=== PATIENT | male | born 1975 | race Caucasian/White ===

== ENCOUNTER 2025-01-17 17:37 | Inpatient (IN) | payer OTHER, SELFPAY ==
[2025-01-17] VITALS (21 sets, daily range): BP systolic 147–187; BP diastolic 99–133; PULSE 97–126; RESP 12–21; TEMP 36.6–37.1; O2SAT 93–99
--- NOTE | ~2025-01-17 | XR_ITS ---
EXAMINATION: XR abdomen/kub 1V DATE: 01/19/2025 08:39 INDICATION: Small bowel obstruction TECHNIQUE: A supine view of the abdomen on 2 radiographs was obtained. COMPARISON: None. FINDINGS: Nasogastric tube with distal tip in proximal side port in the body the stomach. Interval decrease in a now moderate amount of gas scattered throughout multiple loops of small bowel. Interval decrease in bowel dilation with a couple short segment of residual mildly dilated small bowel left abdomen. Maximiliano tional gas is seen in the proximal colon. Small amount of contrast at the rectum likely related to th e small bowel follow-through study from one day prior with no residual oral contrast in the small bow el. IMPRESSION: 1. Likely improving small bowel obstruction with passage of the oral contrast material to the rectum with decrease in amount of gas and small bowels with normal caliber of several of the previously dila blaise loops. Reviewed, dictated and finalized at location A. IMPRESSION: 1. Likely improving small bowel obstruction with passage of the oral contrast m aterial to the rectum with decrease in amount of gas and small bowels with norm al caliber of several of the previously dilated loops.
--- NOTE | ~2025-01-17 | XR_ITS ---
EXAMINATION: XR sm bowel follow through WS DATE: 01/18/2025 16:34 INDICATION: Small bowel obstruction TECHNIQUE: Software Design Engineer radiograph(s) of the abdomen was/were obtained. Oral contrast was administered, and sequential radiographs of the abdomen were obtained until 4 3 hours at which time the patient reques blaise the study be terminated and nasogastric tube suction resumed. COMPARISON: CT dated 01/17/2025 FINDINGS: Nasogastric tube with distal tip in proximal side port in the proximal body of the stomach on the sco ut image. There are dilated loops of gas-filled small bowel in the left abdomen. The contrast remain s confined to the duodenum and jejunum on the three-hour images with no focal small bowel in the righ t abdomen or in the colon on the three-hour delayed images. IMPRESSION: 1. Likely persistent small bowel obstruction with oral contrast not extending beyond the dilated jeju num in the left abdomen over the 3 hours of imaging. Reviewed, dictated and finalized at location A. IMPRESSION: 1. Likely persistent small bowel obstruction with oral contrast not extending b eyond the dilated jejunum in the left abdomen over the 3 hours of imaging.
--- NOTE | ~2025-01-17 | CT_ITS ---
EXAMINATION: CT chest abdomen pelvis w con DATE: 01/17/2025 20:53 INDICATION: upper abdominal/chest pain . TECHNIQUE: Computed tomography (CT) of the chest, abdomen, and pelvis was performed with 100 mL Omnip aque-350 intravenous contrast. Automated exposure control and iterative reconstruction technique were employed. The dose-length product was 1841.89 mGy-cm. COMPARISON: None FINDINGS: CHEST: Thoracic aorta: No significant dilation. No dissection. Lung parenchyma and airways: Lungs and airways are clear. Thoracic inlet, axillae and chest wall: No thyroid or soft tissue mass. No axillary lymphadenopathy. Mediastinum: No mass or lymphadenopathy. Heart and pericardium: Normal heart size. No pericardial effusion. Coronary artery calcifications: Mild. Pleura: No effusion or mass. Thoracic bones: No acute osseous finding in the chest. ABDOMEN/PELVIS: Liver: Mild enlargement. Diffuse fatty infiltration. Biliary/Gallbladder: Gallbladder is normal. No bile duct dilation. Pancreas: No mass or duct dilation. Spleen: Normal. Adrenals:No mass. Kidneys: No suspicious mass, obstructing stone, or hydronephrosis. Bilateral subcentimeter hypodensit ies that are too small to characterize but most likely represent cysts. GI tract: Normal caliber proximal small bowel, which increases in diameter towards the mid small sharona l. Multiple loops of dilated mid small bowel in the left mid abdomen, with mesenteric edema and inter loop fluid, transition point at image 192/330. Short segment isodense small bowel wall thickening wit h mild wall edema, in the area immediately downstream of the transition point. Appendix not confident ly visualized. Mesentery/Peritoneum: No ascites, mass, or free air. Retroperitoneum: No mass Atherosclerotic calcifications of intra-abdominal arterial vessels. Normal Pelvis: Pelvic organs are within normal limits Soft Tissues: Soft tissues and body wall unremarkable. Abdominopelvic bones: No acute osseous finding in the abdomen/pelvis. IMPRESSION: No acute finding detected in the chest. Hepatomegaly with steatosis. Gastritis. Small bowel obstruction with a transition point immediately proximal to a short segment area of small bowel wall thickening which could be related to infectious, inflammatory, or ischemic enteritis. Reviewed, dictated and finalized at location K. IMPRESSION: No acute finding detected in the chest. Hepatomegaly with steatosis. Gastritis. Small bowel obstruction with a transition point immediately proximal to a short segment area of small bowel wall thickening which could be related to infectio us, inflammatory, or ischemic enteritis.
--- NOTE | ~2025-01-17 | XR_ITS ---
Upright portable view of the abdomen Clinical history: NG tube placement Findings: NG tube in satisfactory position. Bowel gas pattern is nonspecific. No evidence for obstruc tion or free air. No abnormal mass lesion or calcification is seen. Osseous structures are intact. Impression: NG tube in satisfactory position. Reviewed, dictated and finalized at [facility]. Impression: NG tube in satisfactory position.
--- NOTE | 2025-01-17 18:11 | ECG_ITS ---
Test Date: 2025-01-17 18:25:00 Measurements Intervals Earle Rate: 111 P: 44 CT: 132 QRS: 66 QRSD: 97 T: 15 QT: 317 QTc: 432 Interpretive Statements SINUS TACHYCARDIA POSSIBLE LEFT ATRIAL ENLARGEMENT INCOMPLETE RIGHT BUNDLE BRANCH BLOCK DELAYED PRECORDIAL R/S TRANSITION BORDERLINE ST-T WAVE ABNORMALITY- INFERIOR LEADS BASELINE ARTIFACT- I, III, AVR, AVL, AVF ABNORMAL ECG No previous ECG available for comparison Electronically Signed On 01-17-2025 19:29:51 CDT by Quan Mojica D.O.
--- NOTE | 2025-01-17 18:12 | ED_ITS ---
HPI - Abdominal Pain General Chief Complaint: Abdominal Pain <Bisi Feng APRN - Last Filed: 01/17/25 18:16> Stated Complaint: Abd pain, vomiting <Bisi Feng APRN - Last Filed: 01/17/25 18:16> Time Seen by Provider: 01/17/25 18:10 <Bisi Feng APRN - Last Filed: 01/17/25 18:16> Focused HPI: Patient is a 49-year-old male who presents to the ER with complaints of abdominal pain. He reports the abdominal pain started around 1:00 p.m. this afternoon. Patient reports it is a band across his upper abdomen/lower chest. He reports he has also had 5 episodes of emesis since the pain started. Patient endorses a history of chronic GI issues and has had a significant portion of his large intestine removed. He denies any recent fevers, urinary symptoms, or back pain. GENERAL: Ill-appearing, well-nourished, and in distress d/t pain. Mildly diaphoretic. HEAD: Normocephalic, atraumatic. CHEST: Clear to auscultation. ?No respiratory distress. HEART: Regular rate and rhythm.? NEURO: ?Alert and oriented x3. ABD: + BS, + Vidales's sign, + tenderness RUQ and LUQ with palpation Patient screened in triage and initial orders placed.? ?Additional care and disposition to be based upon?diagnostic testing and treatment. <Bisi Feng APRN - Last Filed: 01/17/25 18:16> Source: patient <Helio Lebron PA-C - Last Filed: 01/18/25 01:46> Mode of arrival: ambulatory <Helio Lebron PA-C - Last Filed: 01/18/25 01:46> Limitations: no limitations <IDRIS Beth Last Filed: 01/18/25 01:46> History of Present Illness HPI narrative: Agree with MSE above. Patient states that he often deals with chronic abdominal pain due to significant surgical history. States that the vomiting was the most bothersome symptom today. Denies exertional chest pain, shortness of breath, back pain. Denies lower abdominal pain or urinary symptoms. Denies GI bleeding symptoms. States his last bowel movement was earlier this morning. History of Hirschsprung disease with significant colon resection surgical history. <Helio Lebron PA-C - Last Filed: 01/18/25 01:46> Related Data Allergies/Adverse Reactions: Allergies Allergy/AdvReac Type Severity Reaction Status Date / Time No Known Allergies Allergy Verified 01/17/25 17:39 <Bisi Feng, SUPERVISOR SEWING DEPARTMENT - Last Filed: 01/17/25 18:16> Review of Systems 2 Review of Systems: All systems as dictated in HPI <Helio Lebron PA-C - Last Filed: 01/18/25 01:46> Exam 2 Narrative: GENERAL: Well-appearing, well-nourished, and in no acute distress. HEAD: Normocephalic, atraumatic. EYES: PERRLA and EOMI. ENT: Nares clear, no rhinorrhea or epistaxis. Mucous membranes moist. Oropharynx without tonsillar hypertrophy exudate or other lesions. NECK: Supple. No adenopathy or masses. CHEST: No respiratory distress. Clear to auscultation. No wheezes rales or rhonchi HEART: Regular rate and rhythm. No murmur heard. Normal peripheral pulses. ABDOMEN: Tender across the upper abdomen and periumbilical region. Mild abdominal distension. Soft, normal active bowel sounds. MSK: Normal range of motion. No edema. SKIN: Warm, dry, no rash. NEURO: Alert and oriented x4. No focal deficits. PSYCH: Normal mood and affect. <Helio Lebron PA-C - Last Filed: 01/18/25 01:46> Course Vital Signs Vital signs: Vital Signs Temperature 97.9 F 01/17/25 18:10 Pulse Rate 116 H 01/17/25 18:10 Respiratory Rate 20 01/17/25 18:10 Blood Pressure 185/110 H 01/17/25 18:10 Oxygen Delivery Room Air 01/17/25 18:10 Temperature 98.7 F 01/17/25 19:54 Pulse Rate 63 01/18/25 00:00 Respiratory Rate 18 01/18/25 00:00 Blood Pressure 147/99 H 01/17/25 23:37 Pulse Oximetry 95 01/18/25 01:00 Oxygen Delivery Nasal Cannula 01/18/25 01:00 Oxygen Flow Rate 1 01/18/25 01:00 <Bisi Feng, SUPERVISOR SEWING DEPARTMENT - Last Filed: 01/17/25 18:16> Vital Signs Temperature 97.9 F 01/17/25 18:10 Pulse Rate 116 H 01/17/25 18:10 Respiratory Rate 20 01/17/25 18:10 Blood Pressure 185/110 H 01/17/25 18:10 Oxygen Delivery Room Air 01/17/25 18:10 Temperature 98.7 F 01/17/25 19:54 Pulse Rate 63 01/18/25 00:00 Respiratory Rate 18 01/18/25 00:00 Blood Pressure 147/99 H 01/17/25 23:37 Pulse Oximetry 95 01/18/25 01:00 Oxygen Delivery Nasal Cannula 01/18/25 01:00 Oxygen Flow Rate 1 01/18/25 01:00 <Helio Lebron PA-C - Last Filed: 01/18/25 01:46> MDM - Abdominal Pain MDM Narrative Medical decision making narrative: This is a 49-year-old male who presents to the ED for chief complaint of N/V and abdominal pain beginning today. Vitals on arrival show elevated blood pressure and heart rate. Exam remarkable for abdominal distention and diffuse tenderness. Lab work showing elevated white count of 14.2. Lactate mildly elevated 2.4. CRP negative. CT chest abdomen pelvis with contrast: IMPRESSION: No acute finding detected in the chest. Hepatomegaly with steatosis. Gastritis. Small bowel obstruction with a transition point immediately proximal to a short segment area of small bowel wall thickening which could be related to infectious, inflammatory, or ischemic enteritis. Presentation consistent with SBO. Patient was given multiple rounds of analgesia, antiemetics, 2 L of normal saline as well as started on Zosyn for possible GI infection. Lactate only 2.4 so highly doubt ischemic enteritis today. Spoke with Dr. Dsouza, General surgery he does recommend placing NG tube. Patient will be placed on G2 on low intermittent suction. Discussed the case with hospitalist who will admit the patient to medical floor. Patient will be admitted in stable condition. He is understanding and agreeable with this plan. <Helio Lebron PA-C - Last Filed: 01/18/25 01:46> Differential Diagnosis Differential diagnosis: Likely abdominal pain, acute appendicitis, calculus of kidney, constipation, diverticulitis, gastroenteritis and small bowel obstruction <Helio Lebron PA-C - Last Filed: 01/18/25 01:46> Lab Data Result diagrams: 01/17/25 18:20 01/17/25 18:20 <Bisi Feng APRN - Last Filed: 01/17/25 18:16> Labs: Lab Results 01/17/25 01/17/25 01/17/25 Range/Units 18:20 20:00 21:47 WBC 14.2 H (4.5-10.0) K/mm3 RBC 5.69 (4.6-6.20) M/mm3 Hgb 17.4 (14.0-18.0) g/dL Hct 51.0 (42.0-52.0) % MCV 89.6 (80-100) fl MCH 30.6 (26-34) pg MCHC 34.1 (32-36) g/dl RDW 13.2 (11.5-14.5) % Plt Count 225 (150-375) k/mm3 MPV 12.4 H (7.4-10.4) fl Immature Gran % (Auto) 0.6 H (0-0.5) % Neut % (Auto) 79.7 H (45.5-73.1) % Lymph % (Auto) 14.3 L (18.3-44.2) % [place] % (Auto) 4.4 (2.6-8.5) % Eos % (Auto) 0.4 (0-4.4) % Baso % (Auto) 0.6 (0.2-1.2) % Lymph # (Auto) 2.03 (0.9-3.2) K/mm3 [place] # (Auto) 0.6 (0.1-0.6) K/mm3 Eos # (Auto) 0.1 (0-0.3) K/mm3 Baso # (Auto) 0.1 (0.0-0.1) K/mm3 Abs Immat Gran (auto) 0.08 H (0.00-0.031) K/mm3 Absolute Neuts (auto) 11.3 H (1.3-6.7) K/mm3 Absolute Nucleated RBC 0.000 (0.0-0.012) K/mm3 Nucleated RBC % 0.0 (0.0-0.2) % ESR 1 (0-20) mm/hr PT 12.6 (11.1-14.7) Seconds INR 0.9 APTT 24.6 (22.3-36.8) Seconds Sodium 143 (137-145) mmol/L Potassium 4.3 (3.4-5.0) mmol/L Chloride 98 (98-107) mmol/L Carbon Dioxide 33 H (22-30) mmol/L Anion Gap 12 (4-12) mmol/L BUN 17 (9-20) mg/dL Creatinine 1.13 (0.7-1.3) mg/dL Estim Creat Clear Calc 86 ml/min Estimated GFR > 60 (59 - ) Glucose 124 H (65-110) mg/dL Lactic Acid Pending Calcium 10.5 H (8.4-10.2) mg/dL Total Bilirubin 0.7 (0.2-1.3) mg/dL AST 37 (17-59) U/L ALT 61 H (6-50) U/L Alkaline Phosphatase 89 (38-126) U/L Troponin I < 0.012 (0.000-0.034) ng/mL C-Reactive Protein < 0.5 (<1.0) mg/dL Total Protein 9.0 H (6.3-8.2) g/dL Albumin 5.1 (3.5-5.1) g/dL Lipase 35 (23-300) U/L Urine Color Yellow (Yellow) Urine Appearance Cloudy H (Clear) Urine pH 8.0 (5.0-9.0) Ur Specific [place] 1.016 (1.001-1.035) Urine Protein Trace (Negative) mg/dL Urine Glucose (UA) Negative (Negative) mg/dL Urine Ketones Negative (Negative) mg/dL Ur Blood (Man) Negative (Negative) Urine Nitrate Negative (Negative) Urine Bilirubin Negative (Negative) Urine Urobilinogen 0.2 (<2.0) mg/dL Leukocyte Esterase Rfl Negative (Negative) FAYE/UL Urine RBC 0-2 (0-2) /hpf Urine WBC 0-5 (0-3) /hpf Ur Squamous Epith Cells None seen (Few) /hpf Urine Bacteria None seen /hpf Urine Casts 0-2 <Bisi L. Jung, SUPERVISOR [employer]MENT - Last Filed: 01/17/25 18:16> Lab Results 01/17/25 01/17/25 01/17/25 Range/Units 18:20 20:00 21:47 WBC 14.2 H (4.5-10.0) K/mm3 RBC 5.69 (4.6-6.20) M/mm3 Hgb 17.4 (14.0-18.0) g/dL Hct 51.0 (42.0-52.0) % MCV 89.6 (80-100) fl MCH 30.6 (26-34) pg MCHC 34.1 (32-36) g/dl RDW 13.2 (11.5-14.5) % Plt Count 225 (150-375) k/mm3 MPV 12.4 H (7.4-10.4) fl Immature Gran % (Auto) 0.6 H (0-0.5) % Neut % (Auto) 79.7 H (45.5-73.1) % Lymph % (Auto) 14.3 L (18.3-44.2) % [place] % (Auto) 4.4 (2.6-8.5) % Eos % (Auto) 0.4 (0-4.4) % Baso % (Auto) 0.6 (0.2-1.2) % Lymph # (Auto) 2.03 (0.9-3.2) K/mm3 [place] # (Auto) 0.6 (0.1-0.6) K/mm3 Eos # (Auto) 0.1 (0-0.3) K/mm3 Baso # (Auto) 0.1 (0.0-0.1) K/mm3 Abs Immat Gran (auto) 0.08 H (0.00-0.031) K/mm3 Absolute Neuts (auto) 11.3 H (1.3-6.7) K/mm3 Absolute Nucleated RBC 0.000 (0.0-0.012) K/mm3 Nucleated RBC % 0.0 (0.0-0.2) % ESR 1 (0-20) mm/hr PT 12.6 (11.1-14.7) Seconds INR 0.9 APTT 24.6 (22.3-36.8) Seconds Sodium 143 (137-145) mmol/L Potassium 4.3 (3.4-5.0) mmol/L Chloride 98 (98-107) mmol/L Carbon Dioxide 33 H (22-30) mmol/L Anion Gap 12 (4-12) mmol/L BUN 17 (9-20) mg/dL Creatinine 1.13 (0.7-1.3) mg/dL Estim Creat Clear Calc 86 ml/min Estimated GFR > 60 (59 - ) Glucose 124 H (65-110) mg/dL Lactic Acid Pending Calcium 10.5 H (8.4-10.2) mg/dL Total Bilirubin 0.7 (0.2-1.3) mg/dL AST 37 (17-59) U/L ALT 61 H (6-50) U/L Alkaline Phosphatase 89 (38-126) U/L Troponin I < 0.012 (0.000-0.034) ng/mL C-Reactive Protein < 0.5 (<1.0) mg/dL Total Protein 9.0 H (6.3-8.2) g/dL Albumin 5.1 (3.5-5.1) g/dL Lipase 35 (23-300) U/L Urine Color Yellow (Yellow) Urine Appearance Cloudy H (Clear) Urine pH 8.0 (5.0-9.0) Ur Specific [place] 1.016 (1.001-1.035) Urine Protein Trace (Negative) mg/dL Urine Glucose (UA) Negative (Negative) mg/dL Urine Ketones Negative (Negative) mg/dL Ur Blood (Man) Negative (Negative) Urine Nitrate Negative (Negative) Urine Bilirubin Negative (Negative) Urine Urobilinogen 0.2 (<2.0) mg/dL Leukocyte Esterase Rfl Negative (Negative) FAYE/UL Urine RBC 0-2 (0-2) /hpf Urine WBC 0-5 (0-3) /hpf Ur Squamous Epith Cells None seen (Few) /hpf Urine Bacteria None seen /hpf Urine Casts 0-2 <Helio Lebron PA-C - Last Filed: 01/18/25 01:46> Imaging Data Radiologist's impression: ITS Impressions Chest/Abdomen/Pelvis CT 01/17/25 21:04 IMPRESSION: No acute finding detected in the chest. Hepatomegaly with steatosis. Gastritis. Small bowel obstruction with a transition point immediately proximal to a short segment area of small bowel wall thickening which could be related to infectious, inflammatory, or ischemic enteritis. <Bisi Feng APRN - Last Filed: 01/17/25 18:16> ITS Impressions Chest/Abdomen/Pelvis CT 01/17/25 21:04 IMPRESSION: No acute finding detected in the chest. Hepatomegaly with steatosis. Gastritis. Small bowel obstruction with a transition point immediately proximal to a short segment area of small bowel wall thickening which could be related to infectious, inflammatory, or ischemic enteritis. <Helio Lebron PA-C - Last Filed: 01/18/25 01:46> Discharge Plan Discharge Clinical Impression: SBO (small bowel obstruction) <Bisi Feng APRN - Last Filed: 01/17/25 18:16> Patient Disposition: Still a Patient <Bisi Feng APRN - Last Filed: 01/17/25 18:16> Condition: Stable <Bisi Feng APRN - Last Filed: 01/17/25 18:16>
[2025-01-17] MEDS: ONDANSETRON INJ 4 MG/2 ML VIAL 8 MG IV PUSH (18:27)
[2025-01-17] MEDS: KETOROLAC 15 MG/ML VIAL (*BKC) IV PUSH (18:27)
[2025-01-17 18:30] LABS: Basophils Absolute Auto 0.1 K/mm3 (0.0-0.1); Basophils Percent Auto 0.6 % (0.2-1.2); Eosinophils Absolute Auto 0.1 K/mm3 (0-0.3); Eosinophils Percent Auto 0.4 % (0-4.4); Hemoglobin 17.4 g/dL (14.0-18.0); Immature Granulocyte Absolute 0.08 K/mm3 (0.00-0.031); Immature Granulocyte Percent A 0.6 % (0-0.5); Lymphocytes Absolute Auto 2.03 K/mm3 (0.9-3.2); Lymphocytes Percent Auto 14.3 % (18.3-44.2); Mean Corpuscular HGB Conc 34.1 g/dl (32-36); Mean Corpuscular Hemoglobin 30.6 pg (26-34); Mean Corpuscular Volume 89.6 fl (80-100); Mean Platelet Volume 12.4 fl (7.4-10.4); Monocytes Absolute Auto 0.6 K/mm3 (0.1-0.6); Monocytes Percent Auto 4.4 % (2.6-8.5); Neutrophils Absolute Auto 11.3 K/mm3 (1.3-6.7); Neutrophils Percent Auto 79.7 % (45.5-73.1); Platelet Count Result 225 k/mm3 (150-375); Red Blood Count 5.69 M/mm3 (4.6-6.20); Red Cell Distribution Width 13.2 % (11.5-14.5); White Blood Count 14.2 K/mm3 (4.5-10.0)
[2025-01-17 18:39] LABS: Alanine Aminotransferase 61 U/L (6-50); Albumin Level 5.1 g/dL (3.5-5.1); Alkaline Phosphatase 89 U/L (38-126); Anion Gap 12 mmol/L (4-12); Aspartate Amino Transferase 37 U/L (17-59); Bilirubin,Total 0.7 mg/dL (0.2-1.3); Blood Urea Nitrogen 17 mg/dL (9-20); Calcium 10.5 mg/dL (8.4-10.2); Carbon Dioxide 33 mmol/L (22-30); Chloride 98 mmol/L (98-107); Estimated CRCL calculation 86 ml/min; Estimated Glomerular Filt Rate > 60; Glucose 124 mg/dL (65-110); Lipase 35 U/L (23-300); Potassium 4.3 mmol/L (3.4-5.0); Sodium 143 mmol/L (137-145)
[2025-01-17 18:40] LABS: INR 0.9; Prothrombin Time 12.6 Seconds (11.1-14.7)
[2025-01-17 18:42] LABS: Partial Thromboplastin Time 24.6 Seconds (22.3-36.8)
[2025-01-17 18:51] LABS: Troponin I < 0.012 ng/mL (0.000-0.034)
[2025-01-17 20:18] LABS: Add Urine Microscopic? YES; Appearance Urine Cloudy (Clear); Bacteria Urine None Seen /hpf; Bilirubin Urine Negative (Negative); Blood Urine Negative (Negative); Color Urine Yellow (Yellow); Glucose Urine UA Negative (Negative); Ketones Urine Negative (Negative); Leukocyte Esterase Ur Negative LEU/UL (Negative); Nitrate Urine Negative (Negative); Non Pathogenic Casts 0-2; Protein Urine Trace mg/dL (Negative); RBC Urine 0-2 /hpf (0-2); Specific Grav Ur 1.016 (1.001-1.035); Squamous Epithelial Cell Urine None Seen /hpf (Few); Urobilinogen Urine 0.2 mg/dL (<2.0); WBC Urine 0-5 /hpf (0-3)
--- OUTSIDE RECORDS SUMMARY | 2025-01-17 21:08 | XMS_ITS | Encounter Summary ---
Author Organization [facility] Address [address] [place] [address] Care Team Providers Care Glass Technologist Name Role Phone Johanny Glaser DO Primary Care Provider [phone]- [phone] Encounter Details Date Type Department Care Team (Late st Contact Info) Description 04/27/1999 Outpatient Historical [facility] ([facility]3] Internal Medicine - [facility] [address] [id number] [facility] [address] [place] [address] Kurtis Saucedo MD NO ADDRESS ON FILE Social History Tobacco Use Types Packs/Day Years Used Date Smoking Tobacco: Never Assessed Sex and Gender Information Value Date Recorded Sex Assigned at Not on file 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
--- OUTSIDE RECORDS SUMMARY | 2025-01-17 21:08 | XMS_ITS | Encounter Summary ---
Author Organization [facility] Address [address] [place] [address] Care Team Providers Care Bedspread Folder Name Role Phone Johanny Glaser DO Primary Care Provider [phone]- [phone] Encounter Details Date Type Department Care Team (Late st Contact Info) Description 11/26/2007 Outpatient Historical [facility] Surgery [address] [address] Edd Burleson PA [address] [place] [id number] Social History Tobacco Use Types Packs/Day Years Used Date Smoking Tobacco: Never Assessed Sex and Gender Information Value Date Recorded Sex Assigned at Not on file 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
--- OUTSIDE RECORDS SUMMARY | 2025-01-17 21:08 | XMS_ITS | Encounter Summary ---
Author Organization [facility] Address [address] [place] [address] Care Team Providers Care Inventory Control Associate Name Role Phone Johanny Glaser DO Primary Care Provider [phone]- [phone] Encounter Details Date Type Department Care Team (Late st Contact Info) Description 09/08/1998 Outpatient Historical [facility] Internal Medicine - [facility] [address] [address] [facility] [address] [place] [address] Kurtis Saucedo MD NO ADDRESS ON FILE Social History Tobacco Use Types Packs/Day Years Used Date Smoking Tobacco: Never Assessed Sex and Gender Information Value Date Recorded Sex Assigned at Not on file 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
--- OUTSIDE RECORDS SUMMARY | 2025-01-17 21:08 | XMS_ITS | Clinical Summary ---
Author Organization [facility] Address [address] [place] [address] Care Team Providers Care Polysomnographic Technician Name Role Phone Charles Johnston DO Primary Care Provider [phone] Source Comments [facility],non-owned Affiliates and Associated Physician Practices is amultiple site organization consisting of ambulatory clinics and hospital sitesin [place], [place], [place] and [place]. This disclosure is being madepursuant to the Care Everywhere program and may not contain all information available regarding this patient. Last updated 18.[facility] Allergies No known active allergies Medications * Be aware that medications may not be up to date on this document. Alwaysverify current medications with the patient. traZODone (DESYREL) 100 MG tablet Take 100 mg by mouth at bedtime. Active ibuprofen (MOTRIN) 200 MG tablet Active valACYclovir (VALTREX) 1 GM tablet 1,000 mg 11/19/2016 Active rizatriptan, disintegrating, (MAXALT TRANSPORTATION ENGINEERING TECHNICIAN) 10 MG tablet TAKE 1 TAB & PLACE ON THE TOP OF THE TONGUE AND ALLOW IT TO DISSOLVE THEN SWALLOW,MAY REPEAT 2 HRS 12/17/2017 Active Active Problems Problem Noted Date Diagnosed Date BMI 31.0-31.9,adult 11/10/2017 Overview (02/13/2018): Last Assessment & Plan: BMI Follow-up includes: nutrition counseling, exercise counseling and education provided. Low serum cortisol level 11/10/2017 Overview (02/13/2018): Last Assessment & Plan: 42 years old male with history of hyperlipidemia and migraine headaches seen for evaluation of low testosterone. He reports fatigue, dizziness, lightheadedness and episodes of and feet numbness and tingling. No history of steroids or Megace use. He is hemodynamically stable, electrolytes are normal and no eosinophilia on labs. Low cortisol level is likely due to normal diurnal variation. (Labs were drawn at 11:00 a.m.) Will repeat cortisol and ACTH at 7-8 a.m.. Cosyntropin stimulation test if repeat cortisol level is low. Further recommendations based on above. Low testosterone 11/10/2017 Overview (02/13/2018): Last Assessment & Plan: Labs showed persistently low total testosterone. Differentials include normal diurnal variation, low total testosterone secondary to low sex hormone binding globulin versus hypogonadism. Will repeat morning testosterone level. Check FSH/LH, prolactin and SHBG. Evaluation for sleep apnea if labs are consistent with hypogonadotropic hypogonadism. Other fatigue 11/10/2017 Overview (02/13/2018): Last Assessment & Plan: Multifactorial, evaluation for hypogonadism and adrenal insufficiency as above. If above is unremarkable, recommend sleep study. Numbness 10/01/2017 Abnormal echocardiogram 09/01/2017 Overview (02/13/2018): Last Assessment & Plan: I reviewed his echocardiogram and I do not think that the apical wall motion abnormality disorder there. However, he is having chest discomfort as well as shortness of breath as well as hyperlipidemia and so I asked him to get an exercise nuclear stress test. Report of this will follow under separate cover. Other chest pain 09/01/2017 Pure hypercholesterolemia 09/01/2017 Overview (02/13/2018): Last Assessment & Plan: I suggest the watch his diet for the next 3 months and then get a recheck lipid panel in 3 months.. Insomnia 02/12/2014 Overview (02/13/2018): Overview: Insomnia Hereditary and idiopathic peripheral neuropathy 04/29/2013 Overview (06/29/2015): Weakness 07/31/2012 Anxiety state 08/08/2011 Overview (02/13/2018): Overview: ANXIETY STATE NOS Family History Medical History Relation Name Comments Other - Cardiac Brother Hirschsprung's disease Daughter Other - Cardiac Mother Relation Name Status Comments Brother Alive Daughter Alive Mother Alive Social History Tobacco Use Types Packs/Day Years Used Date Smoking Tobacco: Never Smokeless Tobacco: Never Alcohol Use Standard Drinks/Week Comments Yes 0 (1 standard drink = 0.6 oz pur e alcohol) OCC Sex and Gender Information Value Date Recorded Sex Assigned at Not on file Legal Sex Male 5:26 AM QUICK TECHNICIAN Gender Identity Not on file Sexual Orientation Not on file Last Filed Vital Signs Vital Sign Reading Time Taken Comments Blood Pressure 122/60 03/17/2019 3:44 PM CDT Pulse 86 03/17/2019 3:44 PM CDT Temperature 37 C (98.6 F) 03/17/2019 3:44 PM CDT Respiratory Rate 16 03/17/2019 3:44 PM CDT Oxygen Saturation 97% 03/17/2019 3:44 PM CDT Inhaled Oxygen Concentration - - Weight 95.3 kg (210 lb) 03/17/2019 3:44 PM CDT Height 177.8 cm (5' 10 ) 03/17/2019 3:44 PM CDT Body Mass Index 30.13 03/17/2019 3:44 PM CDT Plan of Treatment Health Maintenance Due Date Last Done Comments COLOGUARD (AGES 45-75) - COL ON CA SCREENING 1974 COLON MONITORING 1974 COLONOSCOPY - COLON CA SCREENING 1974 CT COLONOGRAPHY - COLON CA SCREENING 1974 Colorectal Cancer Screening 1974 FIT - COLON CA SCREENING 1974 FLEX SIG - COLON CA SCREENING 1974 LIPID TESTING 1974 HIV SCREENING 1989 HEPATITIS C SCREENING 10/23/1992 DTAP/TDAP/TD VACCINES (1 - Tdap) 1993 HEPATITIS B VACCINE (1 of 3 - 19+ 3-dose series) 1993 SCREENING FOR DIABETES 02/13/2018 COVID-19 VACCINE ( - 2023-2 5 season) 2024 DEPRESSION SCREENING 09/29/2024 PNEUMOCOCCAL VACCINE 50+ (1 of 1 - PCV) 2024 ZOSTER VACCINE (1 of 2) 2024 INFLUENZA VACCINE (Season Ended) 2025 06/13/2017, 07/22/2011 HIB VACCINE Aged Out No longer eligi ble based on patient's age to complete this topic HPV VACCINE Aged Out No longer eligi ble based on patient's age to complete this topic MENINGOCOCCAL (Group B) VACCINE SHARED DECISION-MAKING Aged Out No longer eligible based on patient's age to complete this topic MENINGOCOCCAL GROUPS A/C/Y/W VACCINE Aged Out No longer eligible b ased on patient's age to complete this topic Insurance [employer] Care Teams Polysomnographic Technician Relationship Specialty Start Date End Date Charles Johnston DO [address] [place] [address] PCP - General Internal Medicine 07/07/18
--- OUTSIDE RECORDS SUMMARY | 2025-01-17 21:08 | XMS_ITS | Encounter Summary ---
Author Organization [employer] [facility] Address 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
--- OUTSIDE RECORDS SUMMARY | 2025-01-17 21:08 | XMS_ITS | Continuity of Care Document ---
Author Organization [facility] Address [address] [place] [address] Phone Care Team Providers Care Investor Relations Specialist Name Role Phone Raul Carl MD Unavailable Unavailable Allergies, Adverse Reactions, Alerts Substance Reaction Status Criticality No Known Allergies Active No Inform ation Medications Medication Instructions Dosage Effective Dates (start - stop) Status Comments TRAZODONE HCL (unknown strength) Not Available - Active Procedures Procedure Date Fluoroscopic Guidance; Non Spinal Asp/inject major joint or bursa w/o US g uidance Marcaine Injection Omnipaque, 300-399 mg/ml, per ml 2016 Lidocaine For Injection, 10 Mg Per Ml Ma Depo Medrol Methylprednisolone 40 MG inj X-ray Exam Hip Unilat With Pelvis When P erf 2-3 View Office[facility]patient visit,[facility] [place] Advance Directives Directive Yes / No Effective Date File Name No Information Encounters Encounter Description Practice Location Reason(s) For Visit Diagnoses Date Provider Providers Copied on Encounter [facility], [address] [facility], [place], [place], [id number], [place] tel:[phone] [facility] Right Hip (chief complaint) Unilateral primary osteoarthrit is, right hip Siddhartha Carter. [address], [address], [place], [address], [place]. tel:[phone] Office/outpat ient visit,new, [facility], [address], [place], [place], [id number], [place] tel:[phone] [facility] Right hip (chief complaint) Unilateral primary osteoarthrit is, right hip Mckinley vital. [address], [address], [place], [place], [id number] , [place]. tel:[phone] Referring Provider: Charles Quiroz, [address] [place] [address] [address], [place], [address]. tel:[phone] Family History Family Member Type Diagnosis Age At Onset Father Problem (finding) Diabetes mellitus Father Problem (finding) gout Payers Payer name Insurance type Covered libertarian ID Alen quezada(s) [facility] [id number] Social History Type Description Quantity Date Captured Comments Alcohol Use Details Unknown Caffeine Use Details Unknown Tobacco Use Status No Information Smoking Status No Information Sex Male Chief Complaint And Reason For Visit From encounter dated '11/28/2016 15:00'. Right Hip (chief complaint). Description: Felix comes into the office for his right hip pain Reason For Referral Reason For Referral No Information Plan Of Treatment Date Type Action Status Referral Ordered: X-ray Exam Hip Unilat With Pelvis When Perf 2-3 View RT ordered Referral Ordered: Other RT Appointment date/timeframe: 11/28/2016 ordered History Of Present Illness Encounter Date Complaint History Of Prese nt Illness Right Hip Felix comes in to the office for his right hip pain Right hip Felix is a ple asant 41-year-old gentleman, he presents today for evaluation of his right hip. He has had a groin injury in the past and has had an MRI of the cannot remember the results he did not bring them today. He also has had his right hip x-rayed in the past at other hospitals when he is a groin strains. He has been seeing Dr. Eller, from pain management. He has had an SI joint ablation. He's had no previous surgery on the right hip. He endorses popping locking and catching. He plays soccer and is very active for his age. He denies pain in the knee or pain radiating into the foot or ankle. His pain is located in the groin and radiating around the lateral side of his hip. Pain is rated as a 3-4/10 and is intermittent. He states the pain is constant aching sharp and stabbing. He endorses catching locking stiffness night pain and popping. His pain is improved with rest. Pain is made worse with bending climbing stairs and sitting. He is using anti-inflammatory medications physical therapy massage and pain management. He has had a history of a right inguinal hernia repair. He has had multiple knee arthroscopies and right shoulder arthroscopy. He ambulates without an assistive device. Functional Status Date Functional Assessmen t No Information Instructions Date Instruction Additional Infor mation No Information Assessments Type Assessment Date assessment Unilateral primary osteoarthriti s, right hip Patient Care Teams Name Effective Dates (start - stop) Status Members No Information
--- OUTSIDE RECORDS SUMMARY | 2025-01-17 21:08 | XMS_ITS | Encounter Summary ---
Author Organization [facility] Address 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
--- OUTSIDE RECORDS SUMMARY | 2025-01-17 21:08 | XMS_ITS | Clinical Summary ---
Author Organization [facility] Address [address] [place] [address] Care Team Providers Care Cad Cam Programmer Name Role Phone Charles Johnston Primary Care Provider [phone] Allergies No known active allergies Medications valACYclovir (VALTREX) 1 gram tablet take 2 tablet by oral route every 12 hours x 1 day at onset of symptoms 8 5 11/19/19 17 Active Additional Information Patient not taking.Reported on 11/14/2022 rizatriptan WASTE COLLECTOR (MAXALT-WASTE COLLECTOR) 10 mg disintegrating tablet TAKE 1 TAB & PLACE ON THE TOP OF THE TONGUE AND ALLOW IT TO DISSOLVE THEN SWALLOW,MAY REPEAT 2 HRS 9 tablet 2 12/18/19 18 Active Additional Information Patient not taking.Reported on 11/14/2022 traZODone (DESYREL) 50 mg tablet Take 1 tablet (50 mg total) by mouth nightly as needed for sleep 90 tablet 10/24/19 21 Active Additional Information Patient not taking.Reported on 11/14/2022 amitriptyline (ELAVIL) 25 mg tabletIndications: Primary insomnia,Moderate episode of recurrent major depressive disorder (HCC) Take 1 tablet (25 mg total) by mouth nightly 30 tablet 1 01/20/20 21 Active Additional Information Patient not taking.Reported on 11/14/2022 albuterol HFA (PROVENTIL HFA,VENTOLIN HFA,PROAIR HFA) 90 mcg/actuation inhalerIndications :Influenza A Inhale 2 puffs every 6 (six) hours as needed for wheezing or shortness of breath 1 each 07/14/20 Active benzonatate (TESSALON) 200 mg capsuleIndications :Influenza A Take 1 capsule (200 mg total) by mouth 3 (three) times a day as needed for cough 30 capsule 07/14/20 Active Active Problems Problem Noted Date Diagnosed Date 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 Continue medications (valtrex) as ordered. Moderate episode of recurrent major depressive d isorder 01/19/2021 Assessment & Plan (01/19/2021 9:00 AM CDT): PHQ Screening Over the last 2 weeks, how often have you been bothered by any of the following problems? Little Interest or Pleasure in Doing Things: More than half the days Feeling Down, Depressed, or Hopeless: Several days PHQ-2 Total Score (If total score is 3 or more points, staff should administer the PHQ-9): 3 Over the past 2 weeks, how often have you been bothered by any of the following problems? Little Interest or Pleasure in Doing Things: More than half the days Feeling Down, Depressed, or Hopeless: Several days PHQ-2 Total Score (If total score is 3 or more points, staff should administer the PHQ-9): 3 Trouble Falling or Staying Asleep, or Sleeping too Much: More than half the days Feeling Tired or Having Little Energy: Several days Poor Appetite or Overeating: Several days Feeling Bad About Yourself - or That You are a Failure or Have Let Yourself or Your Family Down: Several days Trouble Concentrating on Things, Such as Reading the Newspaper or Watching Television: Several days Moving or Speaking so Slowly That Other People Could Have Noticed, or the Opposite - Being so Fidgety or Restless That You Have Been Moving Around a lot More Than Usual: Not at all Thoughts That You Would be Better off , or of Hurting Yourself in Some Way: Not at all PHQ-9 Total Score: 9 If you checked off any problems, how difficult have these problems made it for you to do your work, take care of things at home, or get along with other people?: Somewhat difficult Start amitriptyline and reevaluate in 2-4 weeks. Other fatigue 10/07/2019 Routine medical exam 10/07/2019 Assessment & Plan (10/07/2019 10:16 AM CORE SETTER): Takes trazodone for sleep. Sleeps okay at night. Working on diet. Needs to work on exercise. BP and HR stable. Anxiety and depression controlled with zoloft. Denies any chest pain, dizziness, SOB or heart palpitations. Decreased sex drive 10/07/2019 Assessment & Plan (10/07/2019 10:17 AM CORE SETTER): Decreased sex drive for the last couple of years. Seems to be worsening. Denies any ED symptoms Plan: Will check testosterone. IF level is low, will change zoloft to different medication Other synovitis and tenosynovitis 09/06/2019 Diarrhea 01/11/2019 Overview (01/11/2019): Added automatically from request for surgery [id number] Other fatigue 11/10/2017 Assessment & Plan (10/07/2019 10:18 AM CORE SETTER): Patient constantly feels fatigue. Tired all the time. Despite sleeping well at night. j check thyroid, vitamin d, iron and testosterone Assessment & Plan (11/10/2017 11:44 PM CORE SETTER): Multifactorial, evaluation for hypogonadism and adrenal insufficiency as above. If above is unremarkable, recommend sleep study. Low testosterone 11/10/2017 Overview (09/06/2019): Overview: Last Assessment & Plan: Labs showed persistently low total testosterone. Differentials include normal diurnal variation, low total testosterone secondary to low sex hormone binding globulin versus hypogonadism. Will repeat morning testosterone level. Check FSH/LH, prolactin and SHBG. Evaluation for sleep apnea if labs are consistent with hypogonadotropic hypogonadism. Assessment & Plan (11/10/2017 11:44 PM CORE SETTER): Labs showed persistently low total testosterone. Differentials include normal diurnal variation, low total testosterone secondary to low sex hormone binding globulin versus hypogonadism. Will repeat morning testosterone level. Check FSH/LH, prolactin and SHBG. Evaluation for sleep apnea if labs are consistent with hypogonadotropic hypogonadism. BMI 31.0-31.9,adult 11/10/2017 Overview (09/06/2019): Overview: Last Assessment & Plan: BMI Follow-up includes: nutrition counseling, exercise counseling and education provided. Assessment & Plan (11/10/2017 11:45 PM CORE SETTER): BMI Follow-up includes: nutrition counseling, exercise counseling and education provided. Numbness 10/01/2017 Abnormal echocardiogram 09/01/2017 Overview (09/06/2019): Overview: Last Assessment & Plan: I reviewed his echocardiogram and I do not think that the apical wall motion abnormality disorder there. However, he is having chest discomfort as well as shortness of breath as well as hyperlipidemia and so I asked him to get an exercise nuclear stress test. Report of this will follow under separate cover. Assessment & Plan (09/01/2017 2:31 PM CORE SETTER): I reviewed his echocardiogram and I do not think that the apical wall motion abnormality disorder there. However, he is having chest discomfort as well as shortness of breath as well as hyperlipidemia and so I asked him to get an exercise nuclear stress test. Report of this will follow under separate cover. Other chest pain 09/01/2017 Pure hypercholesterolemia 09/01/2017 Overview (09/06/2019): Overview: Last Assessment & Plan: I suggest the watch his diet for the next 3 months and then get a recheck lipid panel in 3 months.. Assessment & Plan (01/19/2021 9:01 AM CDT): Patient has stopped atorvastatin. Will continue to monitor with labs per routine. Assessment & Plan (09/01/2017 2:31 PM CORE SETTER): I suggest the watch his diet for the next 3 months and then get a recheck lipid panel in 3 months.. Insomnia 02/12/2014 Overview (09/06/2019): Insomnia Overview: Overview: Insomnia Assessment & Plan (01/19/2021 8:59 AM CDT): Has been trazodone 50 mg; sometimes have issues fully falling asleeping/staying asleep. Start amitriptyline 25 mg po QHS and reevaluate in 2-4 weeks. Assessment & Plan (09/06/2019 10:05 AM CORE SETTER): Doing well on 100 mg trazodone. Sleeping better at night. Medication seems to be helping. BP and HR stable. Will send medication to pharmacy Hereditary and idiopathic peripheral neuropathy 04/29/2013 Overview (09/06/2019): Overview: Other fatigue 07/31/2012 Overview (09/06/2019): Overview: Last Assessment & Plan: Multifactorial, evaluation for hypogonadism and adrenal insufficiency as above. If above is unremarkable, recommend sleep study. Anxiety state 08/08/2011 Overview (09/06/2019): ANXIETY STATE NOS Overview: Overview: ANXIETY STATE NOS Assessment & Plan (01/19/2021 8:59 AM CDT): Previously on zoloft, stopped due to cost/loss of insurance. Will continue to monitor. Resolved Problems Problem Noted Date Diagnosed Date Resolved Date Low serum cortisol level 11/10/2017 Overview (09/06/2019): Overview: Last Assessment & Plan: 42 years old [...] is low. Further recommendations based on above. Immunizations Immunization Administration Dates Next Due Influenza, Quadrivalent, Spl it, Preservative Free, Intramuscular 09/06/2019,06/13/2017 Influenza, Trivalent, IM (MDV) 07/22/2011 Moderna SARS-CoV-2 Monovalent Vaccination (12+ Y RS) 01/12/2021 Tdap 02/08/2013 Surgical History Surgery Date Site/Laterality Comments OTHER SURGICAL HISTORY 1974 - 09/28/1975 hirshsprungs: surgery OTHER SURGICAL HISTORY hirschprungs: surgery SHOULDER SURGERY KNEE SURGERY INGUINAL HERNIA REPAIR Right Medical History Medical History Date Comments Hx Other Medical hirshsprungs Pneumonia Pneumonia Anxiety disorder Anxiety Arthritis Arthritis Hx Other Medical hirschprungs; C omments: T 03/22/2014 - Hx Other Medical insomnia; Comme nts: T 03/22/2014 - Depression Depression Migraine High cholesterol Chronic constipation Chronic diarrhea Family History Medical History Relation Name Comments Other Daughter hirshsprungs; Colon polyps Father Diabetes Father Diabetes type II Father Diabetes -T ype 2; /Diabetes mellitus type 2; Cancer Father's Sister biliary Colon polyps Mother Hypertension Mother Relation Name Status Comments Daughter Father Alive Father's Sister Alive Mother Alive Social History Tobacco Use Types Packs/Day Years Used Date Smoking Tobacco: Never Smokeless Tobacco: Never Alcohol Use Standard Drinks/Week Comments Yes 4 (1 standard drink = 0.6 oz pur e alcohol) PHQ-2 Answer Date Recorded PHQ-2 Total Score (If total score is 3 or more points, staff should administer the PHQ-9) 3 01/19/2021 Sex and Gender Information Value Date Recorded Sex Assigned at Not on file Legal Sex Male 10:16 PM CORE SETTER Gender Identity Not on file Sexual Orientation Not on file Obstetrics History Last Filed Vital Signs Vital Sign Reading Time Taken Comments Blood Pressure 144/90 07/14/2023 6:44 PM CDT Pulse 103 07/14/2023 6:44 PM CDT Temperature 37.1 C (98.7 F) 07/14/2023 6:44 PM CDT Respiratory Rate 18 07/14/2023 6:44 PM CDT Oxygen Saturation 97% 07/14/2023 6:44 PM CDT Inhaled Oxygen Concentration - - Weight 106.6 kg (235 lb) 07/14/2023 6:44 PM CDT Height 177.8 cm (5' 10 ) 07/14/2023 6:44 PM CDT Body Mass Index 33.72 07/14/2023 6:44 PM CDT Plan of Treatment Health Maintenance Due Date Last Done Comments Hepatitis C Screening 1975 Prostate Cancer Screening-PSA 06/26/2019 06/26/2017 Regular Well Visit/Exam 18-64 10/07/2020 10/07/2019, 06/13/2017 Depression Screening 01/19/2022 01/19/2021, 01/19/2021, 09/06/2019, Additional history exists DTaP/Tdap/Td Vaccine (2 - Td or Tdap) 02/08/2023 02/08/2013 Covid-19 Vaccine (2 - 2023- season) 2024 01/12/2021 Influenza Vaccine (#1) 2024 9, 06/13/2017, 07/22/2011 Zoster Vaccine (1 of 2) 2024 Colon Cancer Screening-Colonoscopy 04/06/2029 04/06/2019 Hepatitis B Screening Completed 05/29/2022, 022 Pneumococcal vaccine <65 Aged Out No longer eligible based on patient's age to complete this topic Procedures Procedure Name Priority Date/Time Associated Diagnosis Comments COLONOSCOPY 04/06/2019 8:03 AM CDT PSA SCREEN Routine 06/26/2017 9:20 AM CDT from Last 3 Months or Most Recently Relevant to Health Maintenance Results * COLONOSCOPY (04/06/2019 8:03 AM CDT) Anatomical Region Laterality Modality Other Narrative Procedure Note Daniel Robledo MD - 04/06/2019 8:03 AM CDT ENDOSCOPY LAB Patient Name: Gerald Adorno Procedure Date: 04/06/2019 8:03 AM Admit Type: Outpatient Room: [facility] Date of : 1975 Instrument Name: [id number] Gender: Male Note Status: Finalized Procedure: Colonoscopy Indications: Colon cancer screening in patient at increased risk: Family history of 1st-degree relative with colonpolyps, Colon cancer screening in patient at increased risk: Family history of colon polyps in multiple 1st-degree relatives Providers: Daniel Robledo MD Referring MD: Charles Johnston D.O. Medicines: Propofol per Anesthesia Complications: No immediate complications. Estimated Blood Loss: Estimated blood loss: none. Procedure: Pre-Anesthesia Assessment: - Patient identification and proposed procedure were verified prior to the procedure by the physician. The procedure was verified in the pre-procedure area. - The risks and benefits of the procedure and thesedation options and risks were discussed with the patient. All questions were answered and informed consent wasobtained. The benefits, risks and alternatives of the procedureand sedation were discussed and informed consent wasobtained. All questions were answered. Please refer to the signed informed consent document in the medical record. Thescope was passed under direct vision. The Colonoscope was introduced through the anus and advanced to the the terminal ileum. The colonoscopy was performed without difficulty. The patient tolerated the procedure well.The quality of the bowel preparation was evaluated usingthe BBPS ([place] Bowel Preparation Scale) with scores of: Right Colon = 3 (entire mucosa seen well with noresidual staining, small fragments of stool or opaque liquid), Transverse Colon = 2 (minor amount of residualstaining, small fragments of stool and/or opaque liquid, butmucosa seen well) and Left Colon = 2 (minor amount of residual staining, small fragments of stool and/or opaqueliquid, but mucosa seen well). The total BBPS score equals 7.The quality of the bowel preparation was good. The cecum was at 35 cm The bowel preparation used was MoviPrep. Bowel prep was administered using a splitdose. Findings: The terminal ileum appeared normal. Two sessile polyps were found in the cecum. The polyps were small in size. These polyps were removed with a cold biopsy forceps. Resection and retrieval were complete. A 8 mm polyp was found in the cecum. The polyp was sessile. The polyp was removed with a cold snare. Resection and retrieval werecomplete. A 5 mm polyp was found in the sigmoid colon. The polyp was sessile.The polyp was removed with a cold biopsy forceps. Resection and retrieval were complete. Normal mucosa was found in the entire colon. Biopsies for histologywere taken with a cold forceps from the entire colon for evaluation of microscopic colitis. There was evidence of a prior end-to-end colo-colonic anastomosis inthe sigmoid colon. This was patent and was characterized by healthy appearing mucosa. The anastomosis was traversed. Impression: - The examined portion of the ileum was normal. - Two small polyps in the cecum, removed with a cold biopsy forceps. Resected and retrieved. - One 8 mm polyp in the cecum, removed with a coldsnare. Resected and retrieved. - One 5 mm polyp in the sigmoid colon, removed with acold biopsy forceps. Resected and retrieved. - Normal mucosa in the entire examined colon.Biopsied. - Patent end-to-end colo-colonic anastomosis, characterized by healthy appearing mucosa. Recommendation: - [facility] The signs and symptoms of potential delayedcomplications were discussed with the patient. Return to normal activities tomorrow. Written discharge instructionswere provided to the patient. - Resume previous diet. - Continue present medications. - Await pathology results. - Pathology results will be sent to you by mail business days. Please call if you do not receivethese. - Repeat colonoscopy in 3 years for surveillance. - Return to GI clinic PRN. Attending Participation: I personally performed the entire procedure without the assistance ofa fellow, resident or assistant chief train dispatcher. Electronically signed by Daniel Robledo Daniel Robledo MD 04/06/2019 8:43:05 AM Number of Addenda: 0 Note Initiated On: 04/06/2019 8:03 AM us Daniel Robledo MD ENDOSCOPY PROCEDURES Final Result * PSA screen (06/26/2017 9:20 AM CDT) PSA-Total 1.020 0.100 - 4.000 ng/mL [facility] Comment: Interpretive Data On December 24, 2016 new Chemistry Instrumentation was implemented. If you have any questions, please contact the Laboratory at [phone]. Testing performed by: [facility], [address] [place] [address], [place]., [address] Blood specimen (specimen) 06/26/2017 9:20 AM CDT 06/26/2017 1:34 PM CDT us Charles Johnston DO LAB BLOOD ORDERABLES Final Re sult [facility] [address] [facility] Department [place] [address] from Last 3 Months or Most Recently Relevant to Health Maintenance [facility] [place] [id number] [employer] [place] [id number] Advance Directives For more information, please contact: [phone] * Full Code (Latest Code Status on File) Date Activated Date Inactivated Comments 04/06/2019 7:49 AM 04/06/2019 1:19 PM Care Teams Cad Cam Programmer Relationship Specialty Start Date End Date Charles Johnston DO [address] [place] [address] PCP - General 12/27/16
--- OUTSIDE RECORDS SUMMARY | 2025-01-17 21:08 | XMS_ITS | Encounter Summary ---
Author Organization [facility] Address [address] [place] [address] Care Team Providers Care Artificial Glass Eye Maker Name Role Phone Johanny Glaser DO Primary Care Provider [phone] Encounter Details Date Type Department Care Team (Late st Contact Info) Description 06/19/1998 Outpatient Historical [facility] Internal Medicine - [facility] [address] [id number] [facility] [address] [place] [address] Kurtis Saucedo MD NO ADDRESS ON FILE Social History Tobacco Use Types Packs/Day Years Used Date Smoking Tobacco: Never Assessed Sex and Gender Information Value Date Recorded Sex Assigned at Not on file Legal Sex Male 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
--- OUTSIDE RECORDS SUMMARY | 2025-01-17 21:08 | XMS_ITS | Referral Summary ---
Author Organization [facility] Medical Office Building 1 Address [address] [place] [address] Care Team Providers Care Chip Tester Name Role Phone Charles Johnston Primary Care Provider [phone] Allergies No known active allergies Medications valACYclovir (VALTREX) 1 gram tablet take 2 tablet by oral route every 12 hours x 1 day at onset of symptoms 8 5 11/19/19 17 Active Additional Information Patient not taking.Reported on 11/14/2022 rizatriptan PUMPER HELPER (MAXALT-PUMPER HELPER) 10 mg disintegrating tablet TAKE 1 TAB [...] 10/07/2019 Assessment & Plan (10/07/2019 10:16 AM OUTSOLE COMPRESSOR): Takes trazodone for sleep. Sleeps okay at night. Working on diet. Needs to work on exercise. BP and HR stable. Anxiety and depression controlled with zoloft. Denies any chest pain, dizziness, SOB or heart palpitations. Decreased sex drive 10/07/2019 Assessment & Plan (10/07/2019 10:17 AM OUTSOLE COMPRESSOR): Decreased sex drive for the last couple of years. Seems to be worsening. Denies any ED symptoms Plan: Will check testosterone. IF level is low, will change zoloft to different medication Other synovitis and tenosynovitis 09/06/2019 Diarrhea 01/11/2019 Overview (01/11/2019): Added automatically from request for surgery [id number] Other fatigue 11/10/2017 Assessment & Plan (10/07/2019 10:18 AM OUTSOLE COMPRESSOR): Patient constantly feels fatigue. Tired all the time. Despite sleeping well at night. j check thyroid, vitamin d, iron and testosterone Assessment & Plan (11/10/2017 11:44 PM OUTSOLE COMPRESSOR): Multifactorial, evaluation for hypogonadism and adrenal insufficiency [...] hypogonadism. Assessment & Plan (11/10/2017 11:44 PM OUTSOLE COMPRESSOR): Labs showed persistently low total testosterone. Differentials [...] provided. Assessment & Plan (11/10/2017 11:45 PM OUTSOLE COMPRESSOR): BMI Follow-up includes: nutrition counseling, exercise counseling [...] cover. Assessment & Plan (09/01/2017 2:31 PM OUTSOLE COMPRESSOR): I reviewed his echocardiogram and I do [...] routine. Assessment & Plan (09/01/2017 2:31 PM OUTSOLE COMPRESSOR): I suggest the watch his diet for [...] weeks. Assessment & Plan (09/06/2019 10:05 AM OUTSOLE COMPRESSOR): Doing well on 100 mg trazodone. Sleeping [...] Vaccination (12+ Y RS) 01/12/2021 Tdap 02/08/2013 Social History Tobacco Use Types Packs/Day Years [...] on file Legal Sex Male 10:16 PM OUTSOLE COMPRESSOR Gender Identity Not on file Sexual Orientation [...] 07/14/2023 6:44 PM CDT Plan of Treatment Not on file Procedures Procedure Name Priority Date/Time Associated Diagnosis [...] 04/06/2019 8:03 AM Admit Type: Outpatient Room: [facility] Date of : 1975 Instrument Name: [id number] Gender: Male Note Status: Finalized Procedure: Colonoscopy [...] the bowel preparation was evaluated usingthe BBPS ([place] Bowel Preparation Scale) with scores of: Right [...] - Patient has a contact number available foremergencies. The signs and symptoms of potential delayedcomplications [...] without the assistance ofa fellow, resident or regional vice president surgical sales. Electronically signed by Daniel Robledo Daniel Robledo MD 04/06/2019 8:43:05 AM Number of Addenda: 0 Note Initiated On: 04/06/2019 8:03 AM Daniel Robledo MD ENDOSCOPY PROCEDURES Final Result * PSA screen (06/26/2017 9:20 AM CDT) PSA-Total 1.020 0.100 - 4.000 ng/mL [facility] Comment: Interpretive Data On December 24, 2016 new Chemistry Instrumentation was implemented. If you have any questions, please contact the Laboratory at [phone]. Testing performed by: [facility], [facility] [facility], [place]., [address] Blood specimen (specimen) 06/26/2017 9:20 AM CDT 06/26/2017 1:34 PM CDT Charles Johnston DO LAB BLOOD ORDERABLES Final Re sult [facility] [address] [facility] Department [place] [address] from Last 3 Months or Most Recently Relevant to Health Maintenance Insurance [facility] [employer] Advance Directives For more information, please contact: [phone] * Full Code (Latest Code Status on File) Date Activated Date Inactivated Comments 04/06/2019 7:49 AM 04/06/2019 1:19 PM Care Teams Chip Tester Relationship Specialty Start Date End Date Charles Johnston DO [address] [place] [address] PCP - General 12/27/16
--- OUTSIDE RECORDS SUMMARY | 2025-01-17 21:08 | XMS_ITS | Clinical Summary ---
Author Organization [facility] on Address [address] [place] [address] Phone Care Team Providers Care Wind Operations Supervisor Name Role Phone Unavailable Primary Care Provider Unavailabl e Allergies No known active allergies Medications TRAZODONE HCL (TRAZODONE ORAL) Take by mouth. Activ e albuterol sulfate 90 mcg inhalerIndicati ons:Wheezing Take 2 Puffs by inhalation every 6 hours as needed for Other (See Comment) (coughing or wheezing). 8 Gram 0 5 Active methylPREDNISol one (MEDROL DOSPACK) 4 mg Tablets, Dose PackIndications :Wheezing Take as directed in package instructions.. 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 Gender Identity Not on file Sexual Orientation Not on file Last Filed Vital Signs Vital Sign Reading Time Taken Comments Blood Pressure 131/85 05/03/2015 4:43 PM CDT Pulse 74 05/03/2015 4:43 PM CDT Temperature 37.3 C (99.2 F) 05/03/2015 4:43 PM CDT Respiratory Rate 16 05/03/2015 4:43 PM CDT Oxygen Saturation 98% 05/03/2015 4:43 PM CDT room air Inhaled Oxygen Concentration - - Weight 95.3 kg (210 lb) 05/03/2015 4:43 PM CDT s tated Height 180.3 cm (5' 11 ) 05/03/2015 4:43 PM CDT stated Body Mass Index 29.29 05/03/2015 4:43 PM CDT Plan of Treatment Health Maintenance Due Date Last Done Comments DTAP/TDAP/TD VACCINES (1 - Tdap) 1993 HEPATITIS B VACCINES (1 of 3 - 19+ 3-dose series) 10/01 COLORECTAL SCREENING 2019 Colorectal Cancer Screening 2019 FIT-DNA Q 3 years 2019 FIT/FOBT Q 1 year 2019 Flex Sig/CT Colonography Q 5 years 2019 INFLUENZA VACCINE (#1) 2024 ZOSTER VACCINE (1 of 2) 2024
--- OUTSIDE RECORDS SUMMARY | 2025-01-17 21:08 | XMS_ITS | Encounter Summary ---
Author Organization [facility] Address 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 RANGE OPERATOR Gender Identity Not on file Sexual Orientation Not on file documented as of this encounter Plan of Treatment Not on file documented as of this encounter Procedures Procedure Name Priority Date/Time Associated Diagnosis Comments XR SHOULDER 2+ VW LEFT Routine 11/16/2007 4:38 PM DYE RANGE OPERATOR documented in this encounter Results * XR SHOULDER 2+ VW LEFT (11/16/2007 4:38 PM DYE RANGE OPERATOR) Anatomical Region Laterality Modality Upper Extremity Other 11/16/2007 4:38 PM DYE RANGE OPERATOR Narrative 11/16/2007 5:01 PM DYE RANGE OPERATOR [address] [address] Admit Date: 11/16/2007 CYN ARNDT Sex: M Admit Prov: ER, AUTHORIZED P Date: 1975 Primary Care Prov: ELYSE ASHTON CMRN: [id number] Room: ERA SSN: [id number] IMAGING SERVICES Ordering Prov: N/A Accession Number: [id number] Interpretation Examination: Left shoulder. 4 views Clinical History: Left shoulder pain. Findings: Examination of the left shoulder fails to demonstrate evidence of fracture, dislocation, or subluxation. The joint spaces unremarkable. There is no evidence of acromioclavicular joint separation. Impression: Radiographically normal left shoulder. . Dictated by: Trinidad BURROUGHS 11/16/2007 17:00 Electronically signed by: Trinidad BURROUGHS 11/16/2007 17:01 Procedure Note Provider, Historical - 11/16/2007 [id number] [place], [place] [address] Admit Date: 11/16/2007 HAIR CYN Delgado Sex: M Admit Prov: ASHLYN ULLOA Date: 1975 Primary Care Prov: ELYSE ASHTON CMRN: [id number] Room: ERA SSN: [id number] IMAGING SERVICES Ordering Prov: N/A Interpretation Examination: Left shoulder. 4 views Clinical History: Left shoulder pain. Findings: Examination of the left shoulder fails to demonstrateevidence of fracture, dislocation, or subluxation. The joint spaces unremarkable.There is no evidence of acromioclavicular joint separation. Impression: Radiographically normal left shoulder. . Dictated by: Trinidad BURROUGHS 11/16/2007 17:00 Electronically signed by: Trinidad BURROUGHS 11/16/2007 17:01 Ulises Nunes MD DIAGNOSTIC IMAGING ORDERABLES Final Result documented in this encounter Visit Diagnoses Not on filedocumented in this encounter Care Teams Hollow Handle Bench Worker Relationship Specialty Start Date End Date Johanny Glaser DO PCP - General 09/13/15 06/12/17 documented as of this encounter
--- OUTSIDE RECORDS SUMMARY | 2025-01-17 21:08 | XMS_ITS | Continuity of Care Document ---
Author Name Anat Dawn Address [address] [facility] [address] [place] [address] Organization Unknown Address [address] [place] [address] [address] [place] [address] Medications No known medications Problems No known problems
--- OUTSIDE RECORDS SUMMARY | 2025-01-17 21:08 | XMS_ITS | Continuity of Care Document ---
Author Organization [facility] Address [address] [place] [address] Phone Care Team Providers Care Polygraph Examiner Name Role Phone Jessica Singh Unavailable Unavailab le Allergies, Adverse Reactions, Alerts Substance Reaction Status Criticality No Known Allergies Active No Inform ation No Known Allergies Active No Inform ation Medications Medication Instructions Dosage Effective Dates (start - stop) Status Comments Percocet 5 mg-325 mg tablet take 1 tablet by oral route every 6 hours as needed 1.00 tablet - Active Mobic 15 mg tablet take 1 tablet by oral route every day - Active VALACYCLOVIR (unknown strength) Not Available - Active RIZATRIPTAN (unknown strength) Not Available - Active TRAZODONE HCL (unknown strength) Not Available - Active SERTRALINE HCL (unknown strength) Not Available - Active TRAZODONE HCL (unknown strength) take 1 tablet by oral route 3 times every day after meals Not Available - Active Procedures Procedure Date RADEX ELBW COMPL MINIMUM 3 VIEWS 2017 OFFICE/OUTPATIENT VISIT NEW OFFICE/OUTPATIENT VISIT EST OFFICE/OUTPATIENT VISIT EST OFFICE/OUTPATIENT VISIT NEW Advance Directives Directive Yes / No Effective Date File Name No Information Encounters Encounter Description Practice Location Reason(s) For Visit Diagnoses Date Provider Providers Copied on Encounter OFFICE/OUTPA TIENT VISIT NEW [facility], [address], [place], [address], [place] tel:[phone] [facility] Pain in right forearmBody mass index (BMI) 29.0-29.9, adultRight elbow pain Sep-2 0-201 8 Jasonrfzahraa Jessica. [address], [place], [place], [address]. tel:[phone] Referring Provider: Charles Quiroz, [address] [facility], [place], [address]. tel:[phone] [facility], [address], [place], [address], [place] tel:[phone] [facility] [place] [facility]care following surgery of the musculoskeleta l system, [facility] [address], [place], [address]. tel:[phone] [facility], [address], [place], [address], [place] tel:[phone] [facility] [place] Aftercare following surgery of the musculoskeleta l system, [facility] [address], [place], [address]. tel:[phone] [facility], [address] [facility], [place], [address], [place] tel:[phone] [facility] [place] [facility]care following surgery of the musculoskeleta l system, [facility] [address], [place], [address]. tel:[phone] [facility], [address] [facility], [place], [address], [place] tel:[phone] [facility] [place] Pain in joint involving shoulder regionLabral Tear [address], [place], [address]. tel:[phone] OFFICE/OUTPA TIENT VISIT [facility], [address], [place], [address], [place] tel:[phone] [facility] Hip flexor tendonitis [address]. [address], [place], [place], [address]. tel:[phone] OFFICE/OUTPA TIENT VISIT [facility], [address], [place], [address], tel:[phone] [facility] [place] Hip flexor tendonitis 3 [address]. [address], [place], [place], [address]. tel:[phone] OFFICE/OUTPA TIENT VISIT [facility], [address], [place], [address], tel:[phone] [facility] [place] Hip flexor tendonitis [address]. [address], [place], [place], [address]. tel:[phone] Family History Family Member Type Diagnosis Age At Onset Mother Problem (finding) heart disease Problem (finding) Family history of gout Father Problem (finding) Diabetes mellitus Problem (finding) Family history of Diabe nahun mellitus Problem (finding) Family history of osteo arthritis Payers Payer name Insurance type Covered constitution party ID Authoriza tion(s) No Information Social History Type Description Quantity Date Captured Comments Alcohol Use Details beer & wine Caffeine Use Details Unknown Tobacco Use Status Current non-smoker 17 Smoking Status Never smoker Non-Smoking Tobacco Use Details : No Details Available : No Details Available Sex Male Vital Signs Date / Time: Height Weight BMI Pulse Rate Blood Pressure Temperature Respiratory Rate Body Surface Area Head Circumference Head Circ. Percentile Wt./Dany. Percentile BMI percentile Pulse Ox Inhaled Ox 2:41 PM 70.00 in 93.894 kg (207.00 lbs) 29.7 0 kg/m eter (2) 113/66 mm[Hg] Chief Complaint And Reason For Visit No Information Reason For Referral Reason For Referral No Information Plan Of Treatment Date Type Action Status Goal Dietary management education , guidance, and counseling completed Referral Ordered: RADEX ELBW COMPL MINIMUM 3 VIEWS RT ordered Referral Ordered: RADEX SPI LUMBOSAC 2/3 VIEWS ordered Referral Ordered: RADEX HIP UNI COMPL MINIMUM 2 VIEWS RT ordered Referral Ordered: RADEX PELVIS 1/2 VIEWS ordered Referral Ordered: MRI ANY JT LXTR C+ MATRL RT hip ordered History Of Present Illness Encounter Date Complaint History Of Prese nt Illness No Information Functional Status Date Functional Assessmen t No Information Instructions Date Instruction Additional Infor mation Rest, ice and elevate. Related t o Right elbow pain Call for increase in pain Relate d to Right elbow pain Dietary management e ducation, guidance, and counseling Related to Body mass index (BMI) 29.0-29.9, adult Assessments Type Assessment Date assessment Pain in right forearm 8 assessment Body mass index (BMI) 29.0-29.9, adult assessment Right elbow pain Patient Care Teams Name Effective Dates (start - stop) Status Members No Information
--- OUTSIDE RECORDS SUMMARY | 2025-01-17 21:08 | XMS_ITS | Continuity of Care Document ---
Author Name Anat Dawn Address [address] [facility] [address] [place] [address] Organization Unknown Address [address] [place] [address] [address] [place] [address] Medications No known medications Problems No known problems
[2025-01-17] MEDS: SODIUM CHLORIDE 0.9% IV 1,000 ML 999 ML IV CONT ×2 (21:39→21:40)
[2025-01-17] MEDS: MORPHINE SULFATE (*CRX) 4 MG/ML INJ IV PUSH (21:40)
[2025-01-17] MEDS: HYDROmorphone HCL INJ (*CRX) 2 MG/ML VIAL (23:10)
[2025-01-17] MEDS: ONDANSETRON INJ 4 MG/2 ML VIAL (23:55)
[2025-01-18] VITALS (12 sets, daily range): BP systolic 163–191; BP diastolic 99–118; PULSE 63–115; RESP 14–18; TEMP 35.7–37.2; O2SAT 88–97; BMI 34.7
[2025-01-18 00:53] LABS: Erythrocyte Sedimentation Rate 1 mm/hr (0-20)
[2025-01-18 00:58] LABS: CRP < 0.5 mg/dL (<1.0)
--- NOTE | 2025-01-18 01:05 | PC.NURSE ---
2nd set of blood cultures obtained by 20g in left hand using Kurin device. Blood sent to lab with kurin label in bio bag.
[2025-01-18 02:02] LABS: Lactic Acid Reflex 2.4 mmol/L (0.7-2.0); Reflex Lactic Acid Yes or No Add Lactic
[2025-01-18] MEDS: PIPERACILLIN/TAZ 4.5G/NS 100ML 4.5 GM/100 ML BAG IVPB ×4 (02:15→17:04)
[2025-01-18] MEDS: SODIUM CHLORIDE 0.9% IV 1,000 ML 125 ML IV CONT ×2 (02:15→12:17)
--- NOTE | 2025-01-18 02:36 | ADMGEN ---
This patient, Gerald Adorno, was admitted to [facility] Surg Room 326-01. Patient/family oriented to hospital policies and general routines including ID bracelet, bed and alarms, visiting hours, pain management, procedures, bathroom and other care routines, personal items, smoking policy, room service/diet, and visiting hours. Information on how to activate the Rapid Response Team has been discussed. Patient/Family are encouraged to report perceived risks to care and to ask questions if they do not understand what they are told or what they should do.
[2025-01-18] MEDS: HYDROmorphone HCL INJ (*CRX) 2 MG/ML VIAL 0.5 MG IV PUSH (02:44)
[2025-01-18 02:56] LABS: Lactic Acid 1.8 mmol/L (0.7-2.0)
[2025-01-18] MEDS: PHENOL/SOD PHENO SPRAY CHERRY (*BKC) 1 SPRAY MUCOUS MEM (05:44)
[2025-01-18] MEDS: ONDANSETRON INJ 4 MG/2 ML VIAL IV PUSH ×4 (05:48→20:36)
[2025-01-18] MEDS: HYDROmorphone HCL INJ (*CRX) 1 MG/ML SYR 0.5 MG IV PUSH (06:59)
--- NOTE | 2025-01-18 09:05 | P.PNIM_ITS ---
Progress Note: A&P Assessment and Plan (1) SBO (small bowel obstruction): Code(s): K56.609 - Unspecified intestinal obstruction, unspecified as to partial versus complete obstruction Status: Acute Assessment and Plan: Surgery consulted NPO NG tube to low intermittent suction Plan for small-bowel follow-through (2) Lactic acidosis: Code(s): E87.20 - Acidosis, unspecified Status: Acute Assessment and Plan: With leukocytosis Lactic acid resolved after fluid bolus Continue Zosyn for possible perforation (3) Acute pain: Code(s): R52 - Pain, unspecified Status: Acute Assessment and Plan: Toradol and Dilaudid Time Spent With Patient Time with patient: Greater than 35 minutes Subjective Date/time seen: 01/18/25 09:05 Interval history: Patient is a 49-year-old male who presents to the ER with complaints of abdominal pain and vomiting. Patient with bowel obstruction and NG on Zosyn plan for small-bowel follow- through Review of Systems Review of Systems: 12 systems were reviewed and are negativ e except for as per HPI. Exam Narrative: General: well appearing, appears stated age. HEENT: normocephalic, atraumatic. Mucous membranes moist. EOMI, PERRLA, bilateral sclera anicteric, no conjunctival injection. Neck supple without JVD, lymphadenopathy, or bruit. NG brown to green output Respiratory: clear to ascultation bilaterally. No rales/rhonic/wheezes. Cardiovascular: Regular rate and rhythm, normal S1-S2 upon ascultation. No murmurs, rubs, or clicks. PMI is nondisplaced, capillary refill less than 3 s econd. Abdomen: Soft, round, no pulsatile masses, nondistended and nontender. No rebound, no guarding. No CVA tenderness, no hepatosplenomegaly. Bowel sounds present to all four quadrants. No high pitch or tinkling sounds, resonant to percussion. Extremities: No cyanosis, clubbing, or edema present. Pulses are palpable 2/2. Active ROM to all four extremities. Neuro: Alert and orientated x 4. PERRLA. Cranial nerves 2-12 intact without focal deficit. Skin: Warm, dry, and intact, without rash, erythema, or lesion. Psych: pleasant, cooperative, normal speech, normal affect, no hallucinations, no dysarthia Objective Data Vital Signs Vital Signs: Vital Signs - 24 hr 01/17/25 18:10 01/17/25 19:54 01/17/25 20:05 Temperature 97.9 F 98.7 F Pulse Rate 116 H 119 H 121 H Respiratory Rate 20 14 21 H Blood Pressure 185/110 H 175/126 H Pulse Oximetry 97 95 Oxygen Delivery Room Air Oxygen Flow Rate 01/17/25 20:15 01/17/25 20:16 01/17/25 20:28 Temperature Pulse Rate 120 H 116 H 117 H Respiratory Rate 16 19 14 Blood Pressure 174/126 H 175/133 H Pulse Oximetry 93 95 95 Oxygen Delivery Oxygen Flow Rate 01/17/25 20:30 01/17/25 20:55 01/17/25 20:56 Temperature Pulse Rate 126 H 107 H Respiratory Rate 15 13 Blood Pressure 166/110 H Pulse Oximetry 97 96 96 Oxygen Delivery Oxygen Flow Rate 01/17/25 21:00 01/17/25 21:10 01/17/25 21:15 Temperature Pulse Rate 113 H 107 H 111 H Respiratory Rate 17 12 19 Blood Pressure 159/117 H Pulse Oximetry 96 97 96 Oxygen Delivery Oxygen Flow Rate 01/17/25 22:15 01/17/25 22:20 01/17/25 22:30 Temperature Pulse Rate 108 H 101 H Respiratory Rate 14 20 Blood Pressure 187/112 H Pulse Oximetry 96 99 98 Oxygen Delivery Room Air Oxygen Flow Rate 01/17/25 23:01 01/17/25 23:02 01/17/25 23:15 Temperature Pulse Rate 103 H 105 H 108 H Respiratory Rate 13 16 17 Blood Pressure 182/112 H Pulse Oximetry 96 95 Oxygen Delivery Oxygen Flow Rate 01/17/25 23:30 01/17/25 23:37 01/17/25 23:45 Temperature Pulse Rate 101 H 97 99 Respiratory Rate 15 15 17 Blood Pressure 147/99 H Pulse Oximetry 94 94 93 Oxygen Delivery Oxygen Flow Rate 01/18/25 00:00 01/18/25 00:08 01/18/25 01:00 Temperature Pulse Rate 63 Respiratory Rate 18 Blood Pressure Pulse Oximetry 93 88 L 95 Oxygen Delivery Room Air Nasal Cannula Oxygen Flow Rate 1 01/18/25 02:23 01/18/25 03:00 01/18/25 04:00 Temperature 99.0 F Pulse Rate 92 98 Respiratory Rate 18 Blood Pressure 163/106 H Pulse Oximetry 95 Oxygen Delivery Room Air Oxygen Flow Rate 01/18/25 05:57 Temperature 97.7 F Pulse Rate 98 Respiratory Rate 16 Blood Pressure 170/116 H Pulse Oximetry 95 Oxygen Delivery Oxygen Flow Rate Intake/Output Intake/Output: Intake & Output 01/15/25 01/16/25 01/17/25 01/18/25 23:59 23:59 23:59 23:59 Intake Total 1999 100 Output Total 210 Balance 1999 - Meds/Results Medications: Active Medications Generic Name Dose Route Start Last Admin Trade Name Freq PRN Reason Stop Dose Admin Hydromorphone HCl 0.5 mg 01/18/25 05:16 01/18/25 06:59 Hydromorphone Hcl Inj (*Crx) 1 Mg/Ml Syr IV PUSH 0.5 mg Q4H PRN Administration Pain Rated 7-10 Piperacillin Sod/Tazobactam Sod 4.5 gm in 100 mls @ 200 mls/hr 01/18/25 01:20 01/18/25 07:00 Zosyn 4.5 Gm/Ns 100 Ml IVPB 200 mls/hr Q6HR YAN Administration Sodium Chloride 1,000 mls @ 125 mls/hr 01/18/25 01:25 01/18/25 02:15 Normal Saline Iv IV CONT 125 mls/hr .Q8H YAN Administration Ondansetron HCl 4 mg 01/18/25 01:22 01/18/25 05:48 Ondansetron Inj 4 Mg/2 Ml Vial IV PUSH 4 mg Q4H PRN Administration Nausea Phenol 1 spray 01/18/25 05:22 01/18/25 05:44 Phenol/Sod Pheno [place] (*Bkc) MUCOUS MEM 1 spray PRN PRN Administration Sore Throat Radiology Results: ITS Impressions Chest/Abdomen/Pelvis CT 01/17/25 21:04 IMPRESSION: No acute finding detected in the chest. Hepatomegaly with steatosis. Gastritis. Small bowel obstruction with a transition point immediately proximal to a short segment area of small bowel wall thickening which could be related to infectious, inflammatory, or ischemic enteritis. Abdomen X-Ray 01/18/25 05:26 Impression: NG tube in satisfactory position. Labs Labs: Laboratory Results - last 24 hr 01/17/25 01/17/25 01/17/25 18:20 20:00 21:47 WBC 14.2 H RBC 5.69 Hgb 17.4 Hct 51.0 MCV 89.6 MCH 30.6 MCHC 34.1 RDW 13.2 Plt Count 225 MPV 12.4 H Immature Gran % (Auto) 0.6 H Neut % (Auto) 79.7 H Lymph % (Auto) 14.3 L [place] % (Auto) 4.4 Eos % (Auto) 0.4 Baso % (Auto) 0.6 Lymph # (Auto) 2.03 [place] # (Auto) 0.6 Eos # (Auto) 0.1 Baso # (Auto) 0.1 Abs Immat Gran (auto) 0.08 H Absolute Neuts (auto) 11.3 H Absolute Nucleated RBC 0.000 Nucleated RBC % 0.0 ESR 1 PT 12.6 INR 0.9 APTT 24.6 Sodium 143 Potassium 4.3 Chloride 98 Carbon Dioxide 33 H Anion Gap 12 BUN 17 Creatinine 1.13 Estim Creat Clear Calc 86 Estimated GFR > 60 Glucose 124 H Lactic Acid 2.4 H Calcium 10.5 H Total Bilirubin 0.7 AST 37 ALT 61 H Alkaline Phosphatase 89 Troponin I < 0.012 C-Reactive Protein < 0.5 Total Protein 9.0 H Albumin 5.1 Lipase 35 Urine Color Yellow Urine Appearance Cloudy H Urine pH 8.0 Ur Specific [place] 1.016 Urine Protein Trace Urine Glucose (UA) Negative Urine Ketones Negative Ur Blood (Man) Negative Urine Nitrate Negative Urine Bilirubin Negative Urine Urobilinogen 0.2 Leukocyte Esterase Rfl Negative Urine RBC 0-2 Urine WBC 0-5 Ur Squamous Epith Cells None seen Urine Bacteria None seen Urine Casts 0-2 01/18/25 02:24 WBC RBC Hgb Hct MCV MCH MCHC RDW Plt Count MPV Immature Gran % (Auto) Neut % (Auto) Lymph % (Auto) [place] % (Auto) Eos % (Auto) Baso % (Auto) Lymph # (Auto) [place] # (Auto) Eos # (Auto) Baso # (Auto) Abs Immat Gran (auto) Absolute Neuts (auto) Absolute Nucleated RBC Nucleated RBC % ESR PT INR APTT Sodium Potassium Chloride Carbon Dioxide Anion Gap BUN Creatinine Estim Creat Clear Calc Estimated GFR Glucose Lactic Acid 1.8 Calcium Total Bilirubin AST ALT Alkaline Phosphatase Troponin I C-Reactive Protein Total Protein Albumin Lipase Urine Color Urine Appearance Urine pH Ur Specific [place] Urine Protein Urine Glucose (UA) Urine Ketones Ur Blood (Man) Urine Nitrate Urine Bilirubin Urine Urobilinogen Leukocyte Esterase Rfl Urine RBC Urine WBC Ur Squamous Epith Cells Urine Bacteria Urine Casts Quality Patient has no home medications Hospitalist MIPS Advance Care Plan I have confirmed that the patient's Advanced Care Plan is present, code status is documented, or surrogate decision maker is listed in patient medical record.: Yes Medication Reconciliation I have utilized all available resources to obtain, update and review the patients current medications (includes all prescriptions, OTC, herbals, canna bis, and nutritional supplements).: Yes
[2025-01-18] MEDS: KETOROLAC 15 MG/ML VIAL (*BKC) IV PUSH (09:47)
[2025-01-18 11:15] LABS: Hemoglobin 16.2 g/dL (14.0-18.0); Immature Platelet Fraction Pct 14.4 % (0.9-11.2); Mean Corpuscular HGB Conc 32.4 g/dl (32-36); Mean Corpuscular Hemoglobin 30.7 pg (26-34); Mean Corpuscular Volume 94.7 fl (80-100); Mean Platelet Volume 13.8 fl (7.4-10.4); Platelet Count Result 199 k/mm3 (150-375); Red Blood Count 5.28 M/mm3 (4.6-6.20); Red Cell Distribution Width 13.5 % (11.5-14.5); White Blood Count 14.5 K/mm3 (4.5-10.0)
[2025-01-18 11:34] LABS: Potassium 4.2 mmol/L (3.4-5.0)
[2025-01-18 11:36] LABS: Anion Gap 11 mmol/L (4-12); Blood Urea Nitrogen 19 mg/dL (9-20); Calcium 10.4 mg/dL (8.4-10.2); Carbon Dioxide 29 mmol/L (22-30); Chloride 102 mmol/L (98-107); Estimated CRCL calculation 85 ml/min; Estimated Glomerular Filt Rate > 60; Glucose 137 mg/dL (65-110); Sodium 142 mmol/L (137-145)
[2025-01-18] MEDS: MORPHINE SULFATE (*CRX) 4 MG/ML INJ IV PUSH ×4 (12:16→20:36)
--- NOTE | 2025-01-18 12:29 | P.CONGS_ITS ---
Assessment and Plan Assessment and plan (1) SBO (small bowel obstruction): Code(s): K56.609 - Unspecified intestinal obstruction, unspecified as to partial versus complete obstruction Status: Acute Assessment and Plan: The patient has a history of multiple abdominal surgeries as a child related to Hirschsprung's disease. No previous small-bowel obstructions, but would expect intra-abdominal adhesions. CT scan showed evidence of a small-bowel obstruction with small bowel wall thickening. He continues to have abdominal pain with no signs of bowel function. Continue NG tube decompression, bowel rest, and IV fluids. We will repeat labs today. Will order a small-bowel series to further evaluate the small-bowel obstruction. Discussed with the patient that he could require surgical exploration if he does not improve with conservative measures. Plan I have discussed the patient's case and plan of care with Dr. Dsouza. History of Present Illness Consult details Consult date: 01/18/25 Reason for consult: other (Small-bowel obstruction) Requesting physician: Helio Lebron PA-C Narrative: This is a 49-year-old with the PMH of Hirschsprung disease with history of multiple abdominal surgeries as a child, who we have been asked to see for a small-bowel obstruction. He presented to the ED overnight with complaints of generalized abdominal pain. He reports having chronic GI issues typically involving intermittent diarrhea and constipation, as well as intermittent cramping abdominal pain. Yesterday, he developed generalized cramping abdominal pain following lunch. He had a cheeseburger and fries. His pain persisted and he had associated nausea and vomiting, which typically does not occur with his chronic symptoms. His pain persisted and became more severe, therefore prompting him to come into the ED for evaluation. [place] [address], lactic acid 2.4 with repeat at 1.8. CT scan of the abdomen and pelvis showed findings of a small-bowel obstruction with a transition point immediately proximal to a short segment area of small bowel wall thickening which could be related to infectious, inflammatory, or ischemic enteritis. Also seen is gastritis, hepatomegaly with steatosis. He had an NG tube placed and was admitted to the hospitalist service. He denies a history of a small-bowel obstruction. He reportedly had 3 surgeries as a child regarding his Hirschsprung disease. He initially had bowel resection and colostomy as an a few days after . His mother thinks he had an additional procedure within the first year. He then was taken back for a pull-through and colostomy takedown around 1 year of age. Over the next few years, it sounds like he had a few endoscopic procedures and dilation of the rectum. He reports he is still having abdominal pain without much relief and denies any flatus. His last bowel movement was yesterday morning prior to onset of symptoms and normal for him. Review of Systems 2 Review of Systems: All systems reviewed & are unremarkable except as noted in HPI and below PMFSH Past Medical History Medical History History of Hirschsprung disease Surgical History Surgical History History of colostomy reversal History of colostomy History of colon resection Social History Social History Smoking status: Never smoker Second hand tobacco smoke exposure: No Alcohol intake: never Substance use: never Substance use type: does not use Do You Feel Safe in your Home?: Yes Lack of Transportation: No Lack of Food: Never True Current Housing: I Have Housing Concerned About Future Housing: No Difficulty Paying Gas/Electric Bills: No Difficulty Paying for Meds: No Currently Unemployed: No Education: Bachelor's Degree Difficulty w/ Childcare or Family Care: No Spiritual care concerns: No Meds Home Medications and Allergies Home Medications ?Medication ?Instructions ?Recorded ?Confirmed ?Type No Home Medications 01/18/25 01/18/25 History Allergies Allergy/AdvReac Type Severity Reaction Status Date / Time No Known Allergies Allergy Verified 01/17/25 17:39 Vital Signs Vital Signs - 24 hr 01/17/25 18:10 01/17/25 19:54 01/17/25 20:05 Temperature 97.9 F 98.7 F Pulse Rate 116 H 119 H 121 H Respiratory Rate 20 14 21 H Blood Pressure 185/110 H 175/126 H Pulse Oximetry 97 95 Oxygen Delivery Room Air Oxygen Flow Rate 01/17/25 20:15 01/17/25 20:16 01/17/25 20:28 Temperature Pulse Rate 120 H 116 H 117 H Respiratory Rate 16 19 14 Blood Pressure 174/126 H 175/133 H Pulse Oximetry 93 95 95 Oxygen Delivery Oxygen Flow Rate 01/17/25 20:30 01/17/25 20:55 01/17/25 20:56 Temperature Pulse Rate 126 H 107 H Respiratory Rate 15 13 Blood Pressure 166/110 H Pulse Oximetry 97 96 96 Oxygen Delivery Oxygen Flow Rate 01/17/25 21:00 01/17/25 21:10 01/17/25 21:15 Temperature Pulse Rate 113 H 107 H 111 H Respiratory Rate 17 12 19 Blood Pressure 159/117 H Pulse Oximetry 96 97 96 Oxygen Delivery Oxygen Flow Rate 01/17/25 22:15 01/17/25 22:20 01/17/25 22:30 Temperature Pulse Rate 108 H 101 H Respiratory Rate 14 20 Blood Pressure 187/112 H Pulse Oximetry 96 99 98 Oxygen Delivery Room Air Oxygen Flow Rate 01/17/25 23:01 01/17/25 23:02 01/17/25 23:15 Temperature Pulse Rate 103 H 105 H 108 H Respiratory Rate 13 16 17 Blood Pressure 182/112 H Pulse Oximetry 96 95 Oxygen Delivery Oxygen Flow Rate 01/17/25 23:30 01/17/25 23:37 01/17/25 23:45 Temperature Pulse Rate 101 H 97 99 Respiratory Rate 15 15 17 Blood Pressure 147/99 H Pulse Oximetry 94 94 93 Oxygen Delivery Oxygen Flow Rate 01/18/25 00:00 01/18/25 00:08 01/18/25 01:00 Temperature Pulse Rate 63 Respiratory Rate 18 Blood Pressure Pulse Oximetry 93 88 L 95 Oxygen Delivery Room Air Nasal Cannula Oxygen Flow Rate 1 01/18/25 02:23 01/18/25 03:00 01/18/25 04:00 Temperature 99.0 F Pulse Rate 92 98 Respiratory Rate 18 Blood Pressure 163/106 H Pulse Oximetry 95 Oxygen Delivery Room Air Oxygen Flow Rate 01/18/25 05:57 01/18/25 08:00 Temperature 97.7 F Pulse Rate 98 94 Respiratory Rate 16 Blood Pressure 170/116 H Pulse Oximetry 95 Oxygen Delivery Oxygen Flow Rate Exam 2 Const: General: no acute distress and uncomfortable (Due to abdominal pain) Nutritional Appearance: average body habitus Orientation/consciousness: p atient oriented x3 HENMT: Head: normocephalic and atraumatic Ears: hearing grossly normal bilaterally Mouth: Yes moist mucous membranes Eyes: General: appearance normal, both eyes and all related structures P upils: Equal, round and reactive pupils present Neck: Neck: normal visual inspection and full ROM Resp: Effort & Inspection: no respiratory distress Auscultation: clear to auscultation bilaterally Cardio: Rate: regular rate Rhythm: regular rhythm Peripheral pulses: P eripheral pulses 2+ throughout GI: Inspection: distended and scar (Large horizontal lower abdominal scar) GI Palp: Yes Soft to palpation, Yes Tenderness to palpation present (GI) (Diffusely tender, more prominent on the left side), Yes Guarding due to palpation present (GI) (Left upper quadrant) and No Rebound tenderness present Auscultation: Hypoactive bowel sounds present Skin: General skin exam: normal color Neuro: General: moves all extremities and no focal motor deficits Speech: n ormal speech Motor exam (neuro): 5/5 motor strength present throughout Extrem: General: normal to inspection and no edema Psych: Mental Status: mental status grossly normal Attitude: cooperative Insight: Good insight present (Psych) Judgement: Good judgement present (Psych) Results Labs 01/18/25 02:23 01/18/25 02:23 Labs: Abnormal lab results 01/17/25 01/17/25 01/17/25 Range/Units 18:20 20:00 21:47 WBC 14.2 H (4.5-10.0) K/mm3 MPV 12.4 H (7.4-10.4) fl Immature Gran % (Auto) 0.6 H (0-0.5) % Neut % (Auto) 79.7 H (45.5-73.1) % Lymph % (Auto) 14.3 L (18.3-44.2) % Abs Immat Gran (auto) 0.08 H (0.00-0.031) K/mm3 Absolute Neuts (auto) 11.3 H (1.3-6.7) K/mm3 % Immature Plt Fraction (0.9-11.2) % Carbon Dioxide 33 H (22-30) mmol/L Glucose 124 H (65-110) mg/dL Lactic Acid 2.4 H (0.7-2.0) mmol/L Calcium 10.5 H (8.4-10.2) mg/dL ALT 61 H (6-50) U/L Total Protein 9.0 H (6.3-8.2) g/dL Urine Appearance Cloudy H (Clear) 01/18/25 Range/Units 02:23 WBC 14.5 H (4.5-10.0) K/mm3 MPV 13.8 H (7.4-10.4) fl Immature Gran % (Auto) (0-0.5) % Neut % (Auto) (45.5-73.1) % Lymph % (Auto) (18.3-44.2) % Abs Immat Gran (auto) (0.00-0.031) K/mm3 Absolute Neuts (auto) (1.3-6.7) K/mm3 % Immature Plt Fraction 14.4 H (0.9-11.2) % Carbon Dioxide (22-30) mmol/L Glucose 137 H (65-110) mg/dL Lactic Acid (0.7-2.0) mmol/L Calcium 10.4 H (8.4-10.2) mg/dL ALT (6-50) U/L Total Protein (6.3-8.2) g/dL Urine Appearance (Clear) Diabetes panel 01/17/25 01/18/25 Range/Units 18:20 02:23 Sodium 143 142 (137-145) mmol/L Potassium 4.3 4.2 (3.4-5.0) mmol/L Chloride 98 102 (98-107) mmol/L Carbon Dioxide 33 H 29 (22-30) mmol/L BUN 17 19 (9-20) mg/dL Creatinine 1.13 1.15 (0.7-1.3) mg/dL Glucose 124 H 137 H (65-110) mg/dL Calcium 10.5 H 10.4 H (8.4-10.2) mg/dL AST 37 (17-59) U/L ALT 61 H (6-50) U/L Alkaline Phosphatase 89 (38-126) U/L Total Protein 9.0 H (6.3-8.2) g/dL Albumin 5.1 (3.5-5.1) g/dL Calcium panel 01/17/25 01/18/25 Range/Units 18:20 02:23 Calcium 10.5 H 10.4 H (8.4-10.2) mg/dL Albumin 5.1 (3.5-5.1) g/dL Pituitary panel 01/17/25 01/18/25 Range/Units 18:20 02:23 Sodium 143 142 (137-145) mmol/L Potassium 4.3 4.2 (3.4-5.0) mmol/L Chloride 98 102 (98-107) mmol/L Carbon Dioxide 33 H 29 (22-30) mmol/L BUN 17 19 (9-20) mg/dL Creatinine 1.13 1.15 (0.7-1.3) mg/dL Glucose 124 H 137 H (65-110) mg/dL Calcium 10.5 H 10.4 H (8.4-10.2) mg/dL Adrenal panel 01/17/25 01/18/25 Range/Units 18:20 02:23 Sodium 143 142 (137-145) mmol/L Potassium 4.3 4.2 (3.4-5.0) mmol/L Chloride 98 102 (98-107) mmol/L Carbon Dioxide 33 H 29 (22-30) mmol/L BUN 17 19 (9-20) mg/dL Creatinine 1.13 1.15 (0.7-1.3) mg/dL Glucose 124 H 137 H (65-110) mg/dL Calcium 10.5 H 10.4 H (8.4-10.2) mg/dL Total Bilirubin 0.7 (0.2-1.3) mg/dL AST 37 (17-59) U/L ALT 61 H (6-50) U/L Alkaline Phosphatase 89 (38-126) U/L Total Protein 9.0 H (6.3-8.2) g/dL Albumin 5.1 (3.5-5.1) g/dL All other labs normal. Imaging Additional studies: ITS Impressions Chest/Abdomen/Pelvis CT 01/17/25 21:04 IMPRESSION: No acute finding detected in the chest. Hepatomegaly with steatosis. Gastritis. Small bowel obstruction with a transition point immediately proximal to a short segment area of small bowel wall thickening which could be related to infectious, inflammatory, or ischemic enteritis. Abdomen X-Ray 01/18/25 05:26 Impression: NG tube in satisfactory position.
[2025-01-18] MEDS: PROCHLORPERAZINE EDISYLATE 10 MG/2 ML VIAL IV PUSH (16:27)
[2025-01-19] VITALS (12 sets, daily range): BP systolic 153–207; BP diastolic 98–121; PULSE 62–109; RESP 12–18; TEMP 36.1–36.6; O2SAT 97–99
[2025-01-19] MEDS: PIPERACILLIN/TAZ 4.5G/NS 100ML 4.5 GM/100 ML BAG IVPB ×5 (00:09→23:30)
[2025-01-19] MEDS: SODIUM CHLORIDE 0.9% IV 1,000 ML 125 ML IV CONT (05:27)
[2025-01-19 06:25] LABS: Basophils Percent Auto 0.3 % (0.2-1.2); Eosinophils Absolute Auto 0.2 K/mm3 (0-0.3); Eosinophils Percent Auto 1.5 % (0-4.4); Hemoglobin 14.1 g/dL (14.0-18.0); Immature Granulocyte Absolute 0.03 K/mm3 (0.00-0.031); Immature Granulocyte Percent A 0.3 % (0-0.5); Lymphocytes Absolute Auto 2.33 K/mm3 (0.9-3.2); Lymphocytes Percent Auto 20.1 % (18.3-44.2); Mean Corpuscular HGB Conc 32.8 g/dl (32-36); Mean Corpuscular Hemoglobin 30.5 pg (26-34); Mean Corpuscular Volume 92.9 fl (80-100); Mean Platelet Volume 12.8 fl (7.4-10.4); Monocytes Absolute Auto 1.4 K/mm3 (0.1-0.6); Monocytes Percent Auto 11.6 % (2.6-8.5); Neutrophils Absolute Auto 7.7 K/mm3 (1.3-6.7); Neutrophils Percent Auto 66.2 % (45.5-73.1); Platelet Count Result 152 k/mm3 (150-375); Red Blood Count 4.63 M/mm3 (4.6-6.20); Red Cell Distribution Width 13.7 % (11.5-14.5); White Blood Count 11.6 K/mm3 (4.5-10.0)
[2025-01-19 06:37] LABS: Anion Gap 6 mmol/L (4-12); Blood Urea Nitrogen 23 mg/dL (9-20); Calcium 9.1 mg/dL (8.4-10.2); Carbon Dioxide 31 mmol/L (22-30); Chloride 106 mmol/L (98-107); Estimated CRCL calculation 77 ml/min; Estimated Glomerular Filt Rate 60; Glucose 120 mg/dL (65-110); Potassium 3.5 mmol/L (3.4-5.0); Sodium 143 mmol/L (137-145)
[2025-01-19 07:10] LABS: Lactic Acid Reflex 0.9 mmol/L (0.7-2.0)
--- NOTE | 2025-01-19 08:36 | P.PNIM_ITS ---
Progress Note: A&P Assessment and Plan (1) SBO (small bowel obstruction): Code(s): K56.609 - Unspecified intestinal obstruction, unspecified as to partial versus complete obstruction Status: Acute Assessment and Plan: * Surgery following * NPO * NG tube to low intermittent suction * Plan for small-bowel follow-through * Clamping trial today, possible removal of NG if successful (2) Lactic acidosis: Code(s): E87.20 - Acidosis, unspecified Status: Acute Assessment and Plan: * With leukocytosis * Lactic acid resolved after fluid bolus * Continue Zosyn for possible perforation (3) Acute pain: Code(s): R52 - Pain, unspecified Status: Acute Assessment and Plan: * Toradol and Dilaudid Time Spent With Patient Time: Subjective Date/time seen: 01/19/25 08:36 Interval history: Patient is a 49-year-old male who presents to the ER with complaints of abdominal pain and vomiting. 01/19/2025 Sitting comfortably at bed at time of exam. Denies any CP, SOB, n/v at this time. Does have generalized abdominal discomfort but reports its greatly improved since yesterday. Reports 6 bowel movements this morning. NG still in place but given passage of flatus and stool this AM, could potentially remove later today if able to tolerate clamping trial. KUB pending. Hypertensive this AM, will receive IV Hydralazine. Review of Systems Review of Systems: 12 systems were reviewed and are negativ e except for as per HPI. Exam Narrative: General: well appearing, appears stated age. HEENT: normocephalic, atraumatic. Mucous membranes moist. EOMI, PERRLA, bilateral sclera anicteric, no conjunctival injection. Neck supple without JVD, lymphadenopathy, or bruit. NG brown to green output Respiratory: clear to ascultation bilaterally. No rales/rhonic/wheezes. Cardiovascular: Regular rate and rhythm, normal S1-S2 upon ascultation. No murmurs, rubs, or clicks. PMI is nondisplaced, capillary refill less than 3 second. Abdomen: Soft, round, no pulsatile masses, nondistended and nontender. No rebound, no guarding. No CVA tenderness, no hepatosplenomegaly. Bowel sounds present to all four quadrants. No high pitch or tinkling sounds, resonant to percussion. Extremities: No cyanosis, clubbing, or edema present. Pulses are palpable 2/2. Active ROM to all four extremities. Neuro: Alert and orientated x 4. PERRLA. Cranial nerves 2-12 intact without focal deficit. Skin: Warm, dry, and intact, without rash, erythema, or lesion. Psych: pleasant, cooperative, normal speech, normal affect, no hallucinations, no dysarthia Objective Data Vital Signs Vital Signs: Vital Signs - 24 hr 01/18/25 12:00 01/18/25 13:58 01/18/25 16:00 Temperature 96.3 F L Pulse Rate 104 H 105 H 114 H Respiratory Rate 14 Blood Pressure 164/99 H Pulse Oximetry 97 Oxygen Delivery 01/18/25 20:00 01/18/25 20:00 01/18/25 20:24 Temperature 98.4 F Pulse Rate 114 H 115 H Respiratory Rate 17 Blood Pressure 191/118 H Pulse Oximetry 94 Oxygen Delivery Room Air 01/19/25 00:00 01/19/25 04:00 01/19/25 05:43 Temperature 97.2 F L Pulse Rate 96 84 95 Respiratory Rate 16 Blood Pressure 189/121 H Pulse Oximetry 98 Oxygen Delivery Intake/Output Intake/Output: Intake & Output 01/16/25 01/17/25 01/18/25 01/19/25 23:59 23:59 23:59 23:59 Intake Total 1999 2400 100 Output Total 1959 1000 Balance 1999 440 -900 Meds/Results Medications: Active Medications Generic Name Dose Route Start Last Admin Trade Name Freq PRN Reason Stop Dose Admin Piperacillin Sod/Tazobactam Sod 4.5 gm in 100 mls @ 200 mls/hr 01/18/25 01:20 01/19/25 05:27 Zosyn 4.5 Gm/Ns 100 Ml IVPB 200 mls/hr Q6HR YAN Administration Sodium Chloride 1,000 mls @ 125 mls/hr 01/18/25 01:25 01/19/25 05:27 Normal Saline Iv IV CONT 125 mls/hr .Q8H YAN Administration Morphine Sulfate 2 mg 01/18/25 11:52 Morphine Sulfate (*Crx) 2 Mg/Ml Inj IV PUSH Q2H PRN Pain Rated 4-6 Morphine Sulfate 4 mg 01/18/25 11:52 01/18/25 20:36 Morphine Sulfate (*Crx) 4 Mg/Ml Inj IV PUSH 4 mg Q2H PRN Administration Pain Rated 7-10 Ondansetron HCl 4 mg 01/18/25 01:22 01/18/25 20:36 Ondansetron Inj 4 Mg/2 Ml Vial IV PUSH 4 mg Q4H PRN Administration Nausea Phenol 1 spray 01/18/25 05:22 01/18/25 05:44 Phenol/Sod Pheno [place] [facility] (*Bkc) MUCOUS MEM 1 spray PRN PRN Administration Sore Throat Prochlorperazine Edisylate 10 mg 01/18/25 16:08 01/18/25 16:27 Prochlorperazine Edisylate 10 Mg/2 Ml Vial IV PUSH 01/20/25 16:00 10 mg Q6H PRN Administration Nausea And Vomiting Radiology Results: ITS Impressions Chest/Abdomen/Pelvis CT 01/17/25 21:04 IMPRESSION: No acute finding detected in the chest. Hepatomegaly with steatosis. Gastritis. Small bowel obstruction with a transition point immediately proximal to a short segment area of small bowel wall thickening which could be related to infectious, inflammatory, or ischemic enteritis. Abdomen X-Ray 01/18/25 05:26 Impression: NG tube in satisfactory position. Small Bowel X-Ray 01/18/25 16:38 IMPRESSION: 1. Likely persistent small bowel obstruction with oral contrast not extending beyond the dilated jejunum in the left abdomen over the 3 hours of imaging. Labs Labs: Laboratory Results - last 24 hr 01/18/25 01/19/25 02:23 05:58 WBC 14.5 H 11.6 H RBC 5.28 4.63 Hgb 16.2 14.1 Hct 50.0 43.0 MCV 94.7 D 92.9 MCH 30.7 30.5 MCHC 32.4 32.8 RDW 13.5 13.7 Plt Count 199 152 MPV 13.8 H 12.8 H Immature Gran % (Auto) 0.3 Neut % (Auto) 66.2 Lymph % (Auto) 20.1 [place] % (Auto) 11.6 H Eos % (Auto) 1.5 Baso % (Auto) 0.3 Lymph # (Auto) 2.33 [place] # (Auto) 1.4 H Eos # (Auto) 0.2 Baso # (Auto) 0.0 Abs Immat Gran (auto) 0.03 Absolute Neuts (auto) 7.7 H Absolute Nucleated RBC 0.000 Nucleated RBC % 0.0 % Immature Plt Fraction 14.4 H Sodium 142 143 Potassium 4.2 3.5 Chloride 102 106 Carbon Dioxide 29 31 H Anion Gap 11 6 BUN 19 23 H Creatinine 1.15 1.27 Estim Creat Clear Calc 85 77 Estimated GFR > 60 60 Glucose 137 H 120 H Lactic Acid 0.9 Calcium 10.4 H 9.1
[2025-01-19] MEDS: hydrALAZINE HCL 20 MG/ML VIAL 10 MG IV PUSH (10:28)
--- NOTE | 2025-01-19 11:45 | PM.PNGS ---
Progress Note: A&P Assessment and Plan (1) SBO (small bowel obstruction): Code(s): K56.609 - Unspecified intestinal obstruction, unspecified as to partial versus complete obstruction Status: Acute Assessment and Plan: Patient now having bowel movements and symptoms have significantly improved. No longer having abdominal pain and his abdominal exam is benign. KUB pending this morning. Will try clamping his NG tube and potentially remove later today if he is able to tolerate clamping trial. Plan I have discussed the patient's case and plan of care with Dr. Dsouza. Subjective Subjective Date/Time Seen: 01/19/25 11:45 Patient reports: flatus and bowel movement Interval history: Patient feeling much better today. He did have abdominal pain and vomiting during his small bowel series yesterday. He began having bowel movements and has had at least 6 bowel movements overnight and this morning. He reports feeling much better now that his bowels are moving. He is no longer having any abdominal pain it does not feel nauseous. He has had very little output from his NG tube this morning. He is also hypertensive this morning, which he has received IV hydralazine from hospitalist. Exam Const: General: comfortable and no acute distress Orientation/consciousness: patient oriented x3 GI: Inspection: non-distended GI Palp: Yes Soft to palpation, No Tenderness to palpation present (GI), No Guarding due to palpation present (GI) and No Rebound tenderness present Auscultation: Hypoactive bowel sounds present Objective Data Vital Signs Vital Signs: Vital Signs - 24 hr 01/18/25 12:00 01/18/25 13:58 01/18/25 16:00 Temperature 96.3 F L Pulse Rate 104 H 105 H 114 H Respiratory Rate 14 Blood Pressure 164/99 H Pulse Oximetry 97 Oxygen Delivery 01/18/25 20:00 01/18/25 20:00 01/18/25 20:24 Temperature 98.4 F Pulse Rate 114 H 115 H Respiratory Rate 17 Blood Pressure 191/118 H Pulse Oximetry 94 Oxygen Delivery Room Air 01/19/25 00:00 01/19/25 04:00 01/19/25 05:43 Temperature 97.2 F L Pulse Rate 96 84 95 Respiratory Rate 16 Blood Pressure 189/121 H Pulse Oximetry 98 Oxygen Delivery 01/19/25 10:33 01/19/25 11:24 Temperature Pulse Rate Respiratory Rate Blood Pressure 207/112 H 173/102 H Pulse Oximetry Oxygen Delivery Intake/Output Intake/Output: Intake & Output 01/16/25 01/17/25 01/18/25 01/19/25 23:59 23:59 23:59 23:59 Intake Total 1999 2400 100 Output Total 1959 1000 Balance 1999 440 -900 Meds/Results Medications: Active Medications Generic Name Dose Route Start Last Admin Trade Name Freq PRN Reason Stop Dose Admin Hydralazine HCl 10 mg 01/19/25 09:56 01/19/25 10:28 Hydralazine Hcl 20 Mg/Ml Vial IV PUSH 10 mg Q8H PRN Administration Blood Pressure - High Piperacillin Sod/Tazobactam Sod 4.5 gm in 100 mls @ 200 mls/hr 01/18/25 01:20 01/19/25 05:27 Zosyn 4.5 Gm/Ns 100 Ml IVPB 200 mls/hr Q6HR YAN Administration Sodium Chloride 1,000 mls @ 125 mls/hr 01/18/25 01:25 01/19/25 05:27 Normal Saline Iv IV CONT 125 mls/hr .Q8H YAN Administration Morphine Sulfate 2 mg 01/18/25 11:52 Morphine Sulfate (*Crx) 2 Mg/Ml Inj IV PUSH Q2H PRN Pain Rated 4-6 Morphine Sulfate 4 mg 01/18/25 11:52 01/18/25 20:36 Morphine Sulfate (*Crx) 4 Mg/Ml Inj IV PUSH 4 mg Q2H PRN Administration Pain Rated 7-10 Ondansetron HCl 4 mg 01/18/25 01:22 01/18/25 20:36 Ondansetron Inj 4 Mg/2 Ml Vial IV PUSH 4 mg Q4H PRN Administration Nausea Phenol 1 spray 01/18/25 05:22 01/18/25 05:44 Phenol/Sod Pheno [place] Nolan (*Bkc) MUCOUS MEM 1 spray PRN PRN Administration Sore Throat Prochlorperazine Edisylate 10 mg 01/18/25 16:08 01/18/25 16:27 Prochlorperazine Edisylate 10 Mg/2 Ml Vial IV PUSH 01/20/25 16:00 10 mg Q6H PRN Administration Nausea And Vomiting Radiology Results: ITS Impressions Chest/Abdomen/Pelvis CT 01/17/25 21:04 IMPRESSION: No acute finding detected in the chest. Hepatomegaly with steatosis. Gastritis. Small bowel obstruction with a transition point immediately proximal to a short segment area of small bowel wall thickening which could be related to infectious, inflammatory, or ischemic enteritis. Small Bowel X-Ray 01/18/25 16:38 IMPRESSION: 1. Likely persistent small bowel obstruction with oral contrast not extending beyond the dilated jejunum in the left abdomen over the 3 hours of imaging. Labs Labs: Laboratory Results - last 24 hr 01/19/25 05:58 WBC 11.6 H RBC 4.63 Hgb 14.1 Hct 43.0 MCV 92.9 MCH 30.5 MCHC 32.8 RDW 13.7 Plt Count 152 MPV 12.8 H Immature Gran % (Auto) 0.3 Neut % (Auto) 66.2 Lymph % (Auto) 20.1 [place] % (Auto) 11.6 H Eos % (Auto) 1.5 Baso % (Auto) 0.3 Lymph # (Auto) 2.33 [place] # (Auto) 1.4 H Eos # (Auto) 0.2 Baso # (Auto) 0.0 Abs Immat Gran (auto) 0.03 Absolute Neuts (auto) 7.7 H Absolute Nucleated RBC 0.000 Nucleated RBC % 0.0 Sodium 143 Potassium 3.5 Chloride 106 Carbon Dioxide 31 H Anion Gap 6 BUN 23 H Creatinine 1.27 Estim Creat Clear Calc 77 Estimated GFR 60 Glucose 120 H Lactic Acid 0.9 Calcium 9.1
[2025-01-19] MEDS: KCL 20MEQ/0.9% SOD CHL 1,000 ML 100 ML IV CONT ×2 (12:40→23:30)
--- NOTE | 2025-01-19 14:05 | PC.NURSE ---
Notified Hospitalist Luan that patients BP is 165/98 and it is too soon to give the PRN Hydralazine. Given instructions to hold off for now and just monitor.
[2025-01-19] MEDS: ACETAMINOPHEN 500 MG TABLET 1000 MG PO ×2 (15:13→21:32)
[2025-01-20] VITALS (7 sets, daily range): BP systolic 152–160; BP diastolic 99–111; PULSE 70–105; RESP 16–18; TEMP 36.1–36.7; O2SAT 96–100
[2025-01-20] MEDS: PIPERACILLIN/TAZ 4.5G/NS 100ML 4.5 GM/100 ML BAG IVPB (05:47)
[2025-01-20 06:01] LABS: Hematocrit 42.2 % (42.0-52.0); Hemoglobin 13.9 g/dL (14.0-18.0); Mean Corpuscular HGB Conc 32.9 g/dl (32-36); Mean Corpuscular Hemoglobin 30.5 pg (26-34); Mean Corpuscular Volume 92.7 fl (80-100); Mean Platelet Volume 12.6 fl (7.4-10.4); Platelet Count Result 147 k/mm3 (150-375); Red Blood Count 4.55 M/mm3 (4.6-6.20); Red Cell Distribution Width 13.3 % (11.5-14.5); White Blood Count 8.1 K/mm3 (4.5-10.0)
[2025-01-20] MEDS: hydrALAZINE HCL 20 MG/ML VIAL 10 MG IV PUSH (06:13)
[2025-01-20 06:22] LABS: Anion Gap 11 mmol/L (4-12); Blood Urea Nitrogen 15 mg/dL (9-20); Calcium 8.6 mg/dL (8.4-10.2); Carbon Dioxide 25 mmol/L (22-30); Chloride 105 mmol/L (98-107); Estimated CRCL calculation 96 ml/min; Estimated Glomerular Filt Rate > 60; Glucose 105 mg/dL (65-110); Potassium 3.6 mmol/L (3.4-5.0); Sodium 141 mmol/L (137-145)
--- NOTE | 2025-01-20 07:55 | P.PNIM_ITS ---
Progress Note: A&P Assessment and Plan (1) SBO (small bowel obstruction): Code(s): K56.609 - Unspecified intestinal obstruction, unspecified as to partial versus complete obstruction Status: Acute Assessment and Plan: * Surgery following * NG tube removed * Clear Liquid advance to Full solid today (2) Lactic acidosis: Code(s): E87.20 - Acidosis, unspecified Status: Acute Assessment and Plan: * With leukocytosis * Lactic acid resolved after fluid bolus * Continue Zosyn for possible perforation (3) Acute pain: Code(s): R52 - Pain, unspecified Status: Acute Assessment and Plan: * Toradol and Dilaudid Time Spent With Patient Time: Subjective Date/time seen: 01/20/25 07:55 Interval history: Patient is a 49-year-old male who presents to the ER with complaints of abdominal pain and vomiting. 01/20/2025 Patient sitting comfortably at bedside. Denies any chest pain, SOB, or n/v. Still has some typical abdominal discomfort at this time but he reports marked improvement of bloating. NG was removed and will attempt liquid diet for lunch and to advance to full solids for dinner with hopeful discharge tomorrow if diet is tolerated. Otherwise patient is stable with no complaints. Will hold IV fluids and Abx. Review of Systems Review of Systems: 12 systems were reviewed and are negativ e except for as per HPI. Exam Narrative: General: well appearing, appears stated age. HEENT: normocephalic, atraumatic. Mucous membranes moist. EOMI, PERRLA, bilateral sclera anicteric, no conjunctival injection. Neck supple without JVD, lymphadenopathy, or bruit. NG brown to green output Respiratory: clear to ascultation bilaterally. No rales/rhonic/wheezes. Cardiovascular: Regular rate and rhythm, normal S1-S2 upon ascultation. No murmurs, rubs, or clicks. PMI is nondisplaced, capillary refill less than 3 second. Abdomen: Soft, round, no pulsatile masses, nondistended and nontender. No rebound, no guarding. No CVA tenderness, no hepatosplenomegaly. Bowel sounds present to all four quadrants. No high pitch or tinkling sounds, resonant to percussion. Extremities: No cyanosis, clubbing, or edema present. Pulses are palpable 2/2. Active ROM to all four extremities. Neuro: Alert and orientated x 4. PERRLA. Cranial nerves 2-12 intact without focal deficit. Skin: Warm, dry, and intact, without rash, erythema, or lesion. Psych: pleasant, cooperative, normal speech, normal affect, no hallucinations, no dysarthia Objective Data Vital Signs Vital Signs: Vital Signs - 24 hr 01/19/25 08:00 01/19/25 10:33 01/19/25 11:24 Temperature Pulse Rate 93 Respiratory Rate Blood Pressure 207/112 H 173/102 H Pulse Oximetry Oxygen Delivery 01/19/25 12:00 01/19/25 12:16 01/19/25 14:00 Temperature 97.8 F Pulse Rate 105 H 62 Respiratory Rate 18 Blood Pressure 154/109 H 165/98 H Pulse Oximetry 97 Oxygen Delivery 01/19/25 16:00 01/19/25 20:00 01/19/25 20:00 Temperature Pulse Rate 109 H 98 Respiratory Rate Blood Pressure Pulse Oximetry Oxygen Delivery Room Air 01/19/25 21:10 01/20/25 00:00 01/20/25 04:00 Temperature 97 F L Pulse Rate 95 103 H 70 Respiratory Rate 12 Blood Pressure 153/100 H Pulse Oximetry 99 Oxygen Delivery 01/20/25 05:49 Temperature 97 F L Pulse Rate 85 Respiratory Rate 16 Blood Pressure 160/111 H Pulse Oximetry 100 Oxygen Delivery Intake/Output Intake/Output: Intake & Output 01/17/25 01/18/25 01/19/25 01/20/25 23:59 23:59 23:59 23:59 Intake Total 1999 2400 2543.8 200 Output Total 1960 1000 Balance 1999 440 1543.8 200 Meds/Results Medications: Active Medications Generic Name Dose Route Start Last Admin Trade Name Freq PRN Reason Stop Dose Admin Acetaminophen 1,000 mg 01/19/25 15:04 01/19/25 21:32 Acetaminophen 500 Mg Tablet PO 1,000 mg Q6H PRN Administration Mild Pain (1-3) or Fever Hydralazine HCl 10 mg 01/19/25 09:56 01/20/25 06:13 Hydralazine Hcl 20 Mg/Ml Vial IV PUSH 10 mg Q8H PRN Administration Blood Pressure - High Piperacillin Sod/Tazobactam Sod 4.5 gm in 100 mls @ 200 mls/hr 01/18/25 01:20 01/20/25 06:17 Zosyn 4.5 Gm/Ns 100 Ml IVPB Infused Q6HR YAN Infusion Potassium Chloride/Sodium Chloride 1,000 mls @ 100 mls/hr 01/19/25 12:30 01/19/25 23:30 Kcl 20 Meq/Ns IV CONT 100 mls/hr .Q10H YAN Administration Morphine Sulfate 2 mg 01/18/25 11:52 Morphine Sulfate (*Crx) 2 Mg/Ml Inj IV PUSH Q2H PRN Pain Rated 4-6 Morphine Sulfate 4 mg 01/18/25 11:52 01/18/25 20:36 Morphine Sulfate (*Crx) 4 Mg/Ml Inj IV PUSH 4 mg Q2H PRN Administration Pain Rated 7-10 Ondansetron HCl 4 mg 01/18/25 01:22 01/18/25 20:36 Ondansetron Inj 4 Mg/2 Ml Vial IV PUSH 4 mg Q4H PRN Administration Nausea Phenol 1 spray 01/18/25 05:22 01/18/25 05:44 Phenol/Sod Pheno [place] Nolan (*Bkc) MUCOUS MEM 1 spray PRN PRN Administration Sore Throat Prochlorperazine Edisylate 10 mg 01/18/25 16:08 01/18/25 16:27 Prochlorperazine Edisylate 10 Mg/2 Ml Vial IV PUSH 01/20/25 16:00 10 mg Q6H PRN Administration Nausea And Vomiting Radiology Results: ITS Impressions Chest/Abdomen/Pelvis CT 01/17/25 21:04 IMPRESSION: No acute finding detected in the chest. Hepatomegaly with steatosis. Gastritis. Small bowel obstruction with a transition point immediately proximal to a short segment area of small bowel wall thickening which could be related to infectious, inflammatory, or ischemic enteritis. Small Bowel X-Ray 01/18/25 16:38 IMPRESSION: 1. Likely persistent small bowel obstruction with oral contrast not extending beyond the dilated jejunum in the left abdomen over the 3 hours of imaging. Abdomen X-Ray 01/19/25 13:01 IMPRESSION: 1. Likely improving small bowel obstruction with passage of the oral contrast material to the rectum with decrease in amount of gas and small bowels with normal caliber of several of the previously dilated loops. Labs Labs: Laboratory Results - last 24 hr 01/20/25 01/20/25 05:44 05:45 WBC 8.1 RBC 4.55 L Hgb 13.9 L Hct 42.2 MCV 92.7 MCH 30.5 MCHC 32.9 RDW 13.3 Plt Count 147 L MPV 12.6 H Sodium 141 Potassium 3.6 Chloride 105 Carbon Dioxide 25 Anion Gap 11 BUN 15 D Creatinine 1.01 Estim Creat Clear Calc 96 Estimated GFR > 60 Glucose 105 Calcium 8.6
--- NOTE | 2025-01-20 11:13 | P.PNGS_ITS ---
Progress Note: A&P Assessment and Plan (1) SBO (small bowel obstruction): Code(s): K56.609 - Unspecified intestinal obstruction, unspecified as to partial versus complete obstruction Status: Acute Assessment and Plan: * Resolving. Advance diet as tolerated today to a soft diet. Will stop his IV antibiotics and IV fluids. He is surgically stable for discharge later today if tolerating solid foods. Follow-up with surgery only p.r.n.. Plan I have discussed the patient's case and plan of care with Dr. Dsouza. Subjective Subjective Date/Time Seen: 01/20/25 11:13 Patient reports: feels better, tolerating liquids well, flatus and bowel movement Interval history: Patient doing much better today. He reports feeling back to his baseline. He deals with intermittent chronic abdominal pain following meals, and states that he is dealing with his typical cramping discomfort at times when he has the liquids. Otherwise, he has not had the abdominal pain that he presented with. He denies any nausea or vomiting. He feels much less bloated. He continues to have bowel movements. Exam Const: General: comfortable and no acute distress GI: Inspection: non-distended GI Palp: Yes Soft to palpation, No Tenderness to palpation present (GI), No Guarding due to palpation present (GI) and No Rebound tenderness present Auscultation: normal bowel sounds Objective Data Vital Signs Vital Signs: Vital Signs - 24 hr 01/19/25 11:24 01/19/25 12:00 01/19/25 12:16 Temperature Pulse Rate 105 H Respiratory Rate Blood Pressure 173/102 H 154/109 H Pulse Oximetry Oxygen Delivery 01/19/25 14:00 01/19/25 16:00 01/19/25 20:00 Temperature 97.8 F Pulse Rate 62 109 H Respiratory Rate 18 Blood Pressure 165/98 H Pulse Oximetry 97 Oxygen Delivery Room Air 01/19/25 20:00 01/19/25 21:10 01/20/25 00:00 Temperature 97 F L Pulse Rate 98 95 103 H Respiratory Rate 12 Blood Pressure 153/100 H Pulse Oximetry 99 Oxygen Delivery 01/20/25 04:00 01/20/25 05:49 01/20/25 08:19 Temperature 97 F L Pulse Rate 70 85 Respiratory Rate 16 Blood Pressure 160/111 H Pulse Oximetry 100 96 Oxygen Delivery Room Air Intake/Output Intake/Output: Intake & Output 01/17/25 01/18/25 01/19/25 01/20/25 23:59 23:59 23:59 23:59 Intake Total 1999 2400 2543.8 440 Output Total 1959 1000 Balance 1999 440 1543.8 440 Meds/Results Medications: Active Medications Generic Name Dose Route Start Last Admin Trade Name Freq PRN Reason Stop Dose Admin Acetaminophen 1,000 mg 01/19/25 15:04 01/19/25 21:32 Acetaminophen 500 Mg Tablet PO 1,000 mg Q6H PRN Administration Mild Pain (1-3) or Fever Hydralazine HCl 10 mg 01/19/25 09:56 01/20/25 06:13 Hydralazine Hcl 20 Mg/Ml Vial IV PUSH 10 mg Q8H PRN Administration Blood Pressure - High Morphine Sulfate 2 mg 01/18/25 11:52 Morphine Sulfate (*Crx) 2 Mg/Ml Inj IV PUSH Q2H PRN Pain Rated 4-6 Morphine Sulfate 4 mg 01/18/25 11:52 01/18/25 20:36 Morphine Sulfate (*Crx) 4 Mg/Ml Inj IV PUSH 4 mg Q2H PRN Administration Pain Rated 7-10 Ondansetron HCl 4 mg 01/18/25 01:22 01/18/25 20:36 Ondansetron Inj 4 Mg/2 Ml Vial IV PUSH 4 mg Q4H PRN Administration Nausea Phenol 1 spray 01/18/25 05:22 01/18/25 05:44 Phenol/Sod Pheno [place] Nolan (*Bkc) MUCOUS MEM 1 spray PRN PRN Administration Sore Throat Prochlorperazine Edisylate 10 mg 01/18/25 16:08 01/18/25 16:27 Prochlorperazine Edisylate 10 Mg/2 Ml Vial IV PUSH 01/20/25 16:00 10 mg Q6H PRN Administration Nausea And Vomiting Radiology Results: ITS Impressions Chest/Abdomen/Pelvis CT 01/17/25 21:04 IMPRESSION: No acute finding detected in the chest. Hepatomegaly with steatosis. Gastritis. Small bowel obstruction with a transition point immediately proximal to a short segment area of small bowel wall thickening which could be related to infectious, inflammatory, or ischemic enteritis. Small Bowel X-Ray 01/18/25 16:38 IMPRESSION: 1. Likely persistent small bowel obstruction with oral contrast not extending beyond the dilated jejunum in the left abdomen over the 3 hours of imaging. Abdomen X-Ray 01/19/25 13:01 IMPRESSION: 1. Likely improving small bowel obstruction with passage of the oral contrast material to the rectum with decrease in amount of gas and small bowels with normal caliber of several of the previously dilated loops. Labs Labs: Laboratory Results - last 24 hr 01/20/25 01/20/25 05:44 05:45 WBC 8.1 RBC 4.55 L Hgb 13.9 L Hct 42.2 MCV 92.7 MCH 30.5 MCHC 32.9 RDW 13.3 Plt Count 147 L MPV 12.6 H Sodium 141 Potassium 3.6 Chloride 105 Carbon Dioxide 25 Anion Gap 11 BUN 15 D Creatinine 1.01 Estim Creat Clear Calc 96 Estimated GFR > 60 Glucose 105 Calcium 8.6
--- NOTE | 2025-01-20 14:42 | PM.DS ---
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 He reports sharp band-like pain that spread across his entire upper abdomen/lower chest. He also endorsed approximately 5 episodes of emesis on 01/17 as well. He denies any worsening or alleviating factors. Denies any urinary changes. Upon exam, patient appears to have significant abdominal distention and diffuse tenderness to palpation. CT chest/abd/pelvis showed No acute finding detected in the chest. Hepatomegaly with steatosis. Gastritis. Small bowel obstruction with a transition point immediately proximal to a short segment area of small bowel wall thickening which could be related to infectious, inflammatory, or ischemic enteritis. He was administered analgesia, antiemetics, 2L NS and started on Zosyn in ED. NG tube was placed for bowel decompressionGeneral surgery was consulted regarding SBO. They recommended continued NG tube decompression, bowel rest and IVFs with repeat labs and to order a small bowel series to evaluate SBO further. Pt was found to have lactic acidosis which improved with IVFs. Pt was able to have multiple bowel movements on 01/19 with significant improvement in abdominal bloating and tenderness. On 01/20, pt contniued to have multiple bowel movements and the NG tube was able to be discontinued. He was then able to advanced from a clear liquid diet to a full solid diet with no limitations. General surgery cleared the patient to be discontinue from IV antibiotics and IVFs. KUB showed: Likely improving small bowel obstruction with passage of the oral contrast material to the rectum with decrease in amount of gas and small bowels with normal caliber of several of the previously dilated loops. Pt otherwise stable with stable blood work and vitals. He was able to tolerate solid foods without any complications. He denies any chest pain, n/v, SOB, or abdominal pain. He deals with intermittent chronic abdominal pain following meals, and states that he is dealing with his typical cramping discomfort at times when he has the liquids. Clear for discharge at this time. Pt amenable to this. Plan for discharge home. Status at Discharge Functional status at discharge: independent ambulation Time Spent with Patient Time attestation: Total time spent providing and/or coordinating discharge services:45 Exam Narrative: General: well appearing, appears stated age. HEENT: normocephalic, atraumatic. Mucous membranes moist. EOMI, PERRLA, bilateral sclera anicteric, no conjunctival injection. Neck supple without JVD, lymphadenopathy, or bruit. NG brown to green output Respiratory: clear to ascultation bilaterally. No rales/rhonic/wheezes. Cardiovascular: Regular rate and rhythm, normal S1-S2 upon ascultation. No murmurs, rubs, or clicks. PMI is nondisplaced, capillary refill less than 3 second. Abdomen: Soft, round, no pulsatile masses, nondistended and nontender. No rebound, no guarding. No CVA tenderness, no hepatosplenomegaly. Bowel sounds present to all four quadrants. No high pitch or tinkling sounds, resonant to percussion. Extremities: No cyanosis, clubbing, or edema present. Pulses are palpable 2/2. Active ROM to all four extremities. Neuro: Alert and orientated x 4. PERRLA. Cranial nerves 2-12 intact without focal deficit. Skin: Warm, dry, and intact, without rash, erythema, or lesion. Psych: pleasant, cooperative, normal speech, normal affect, no hallucinations, no dysarthia DS: Data Data Completed and Pending Labs on day of discharge: Labs from last 24 hours 01/20/25 01/20/25 05:45 05:44 WBC 8.1 RBC 4.55 L Hgb 13.9 L Hct 42.2 MCV 92.7 MCH 30.5 MCHC 32.9 RDW 13.3 Plt Count 147 L MPV 12.6 H Sodium 141 Potassium 3.6 Chloride 105 Carbon Dioxide 25 Anion Gap 11 BUN 15 D Creatinine 1.01 Estim Creat Clear Calc 96 Estimated GFR > 60 Glucose 105 Calcium 8.6 Preliminary micro results at discharge 01/18/25 01:03 Blood Culture - Preliminary Blood 01/17/25 23:38 Blood Culture - Preliminary Blood Discharge Plan Discharge Attending physician on discharge: Luan Alfredo Consulting providers: Lorraine Dsouza Discharging Clinician: Luan Alfredo Anticipated Discharge Date/Time: 01/20/25 14:38 Patient Disposition: Home Activity: as tolerated Diet: as tolerated Discharge Instructions: Discharge disposition: Stable Take medications as prescribed. You will be prescribed a 30 day supply of Lisinopril 10mg. Monitor blood pressures Take caution while standing, rising, or moving Change positions slowly taking a break between each position change If you standing feel dizzy sit back down and take a break Encouraged to continue with yearly vaccinations Return to the emergency department if he developed sudden shortness of breath, chest pain, nausea, vomiting, upset stomach or intractable diarrhea Return to the emergency department if you develop fever greater than 101.5 Follow-up with the primary care physician within 1-2 weeks Thank you for choosing [facility] for your healthcare needs Patient Instructions: Antibiotic Form Patient Language: Colombian Stand Alone Forms: General Discharge Information Follow-up/Referrals: Nilson,MD Doni [Primary Care Provider] - Discharge Medications: New lisinopril 10 mg tablet 10 mg PO DAILY Qty: 30 0RF Date of admission: 01/18/25 08:36 Primary Care Provider: NilsonDoni Admitting Provider: Mervat Stockton Attending physician on admission: Luan Alfredo Condition: Stable Hospitalist MIPS Heart Failure (Exclusion) Patient has history of Heart Transplant or Left Ventricular Assistive Device?: No IF YES, STOP HERE Heart Failure (Qualifier) Patient has current or prior documentation of LVEF less than or equal to 40%, or mod/servere depressed LVSF?: No IF NO, STOP HERE
== END 2025-01-20 15:25 | disposition home or self-care (01) | DRG 389 ==
LOC: ANHED 01-18 00:45 → ANH3MEDSUR 01-18 00:55
PROVIDERS: Nurse Practitioner Family; Registered Nurse; Admitting Provider General Practice; Emergency Provider Physician Assistant; PCP Internal Medicine; Visit Provider Physician Assistant
DX: K56.609 Unspecified intestinal obstruction, unspecified as to partial versus complete obstruction (principal); E87.20 Acidosis, unspecified; K29.70 Gastritis, unspecified, without bleeding; K76.0 Fatty (change of) liver, not elsewhere classified
CPT/HCPCS: 36415; 71260; 74018; 74177; 74250; 80048; 80053; 81001; 83605; 83690; 84484; 85025; 85027; 85055; 85610; 85652; 85730; 86140; 87040; 93005; 96361; 96374; 96375; 96376; 99285; A9270; G0378; J0360; J0780; J1171; J1885; J2270; J2405; J2543; J3480; J7030; Q9967